=== PATIENT | male | born 1985 | race Caucasian/White ===

== ENCOUNTER 2017-02-18 01:09 | Inpatient (IN) | payer BC ==
[~2017-02-18 01:09] MED LIST: AMLO5TAB2 PO; BISACODYL 10 MG SUPP RECTAL PRN; CLIN1CAP6 PO; IBUP-232 PO; LACTULOSE SYRUP 20 GM/30 ML CUP PO PRN; LISI10TA3 PO; MAGNESIUM HYDROXIDE SUSP 30 ML CUP PO PRN; NALOXONE HCL 0.4 MG/ML AMP IV PRN; ONDANSETRON HCL 4 MG/2 ML VIAL IVP PRN; SENNOSIDES 8.6 MG TAB PO PRN; Vancomycin Consult Pharmacy 1 EA OTHER SCH
[2017-02-18 02:00] VITALS: BP 135/85; PULSE 88; RESP 22; TEMP 98.8; O2SAT 94
[2017-02-18] MEDS: PIPERACIL-TAZO 4.5 GM PREMIX 100 ML IV SCH ×3 (02:16→18:48)
--- NOTE | 2017-02-18 02:21 | HHI.HP ---
[facility] Service [facility] Primary Care Physician Non-Staff Admission Diagnosis Scrotal/perineal cellulitis Diagnoses: (1) Tobacco abuse (2) Leukocytosis (3) Cellulitis of scrotum (4) Cellulitis of perineum (5) Hypertension Chief Complaint: Pain/swelling in groin Travel History International Travel<30 Days: No Contact w/Intl Traveler <30 Da: No History of Present Illness The patient is a 31 year-old male who presented to the [place] [facility] with complaint of swelling and pain of the scrotum/groin. He states that his girlfriend convinced him to use Díaz chemical hair removal product on his genitalia on Monday. By Monday he noted "ingrown hairs", which progressed over the next 2 days to significant scrotal swelling and pain. He has no difficulty urinating. Has had subjective fever/chills. Review of Systems Constitutional: COMPLAINS OF: Fever, Chills, DENIES: Night Sweats Eyes: DENIES: Blurred vision, Vision loss Ears, nose, mouth, throat: DENIES: Hearing loss Respiratory: DENIES: Cough, Wheezing, Sputum production, Shortness of breath Cardiovascular: DENIES: Chest pain, Palpitations, Dyspnea on Exertion, Lower Extremity Edema Gastrointestinal: DENIES: Abdominal pain, Constipation, Diarrhea, Nausea, Vomiting Genitourinary: DENIES: Urinary frequency, Urinary incontinence, Urgency, Hematuria, Dysuria, Nocturia Musculoskeletal: DENIES: Joint pain, Muscle aches Integumentary: COMPLAINS OF: Rash, DENIES: Pruritus Hematologic/lymphatic: DENIES: Bruising Neurologic: DENIES: Headache Past Family Social History Past Medical History Asthma Hypertension Past Surgical History None Reported Medications Amlodipine (Amlodipine Besylate) 5 Mg Tab 5 Mg PO DAILY Lisinopril 10 Mg Tab 10 Mg PO DAILY Allergies: Coded Allergies: No Known Allergies (Unverified , 01/01/17) Family History Hypertension Social History Patient states that he drinks on the weekends. He smokes about a pack a day. Denies illicit drug use. Physical Exam Physical Exam GENERAL: Obese male in no acute distress. HEENT: Normocephalic, atraumatic. Pupils equal, round and reactive. Extraocular movements intact. No scleral icterus. No injection or drainage. Oropharynx is clear. Mucous membranes are moist. CARDIOVASCULAR: Regular rate and rhythm without murmurs, gallops, or rubs. RESPIRATORY: Clear to auscultation. No wheezes, rales, or rhonchi. Breathing is non-labored. GASTROINTESTINAL: Abdomen soft, non-tender, nondistended. EXTREMITIES: No lower extremity edema. No calf tenderness. PSYCH: Alert and oriented x 3. GENITOURINARY: There is swelling and erythema of the scrotum and perineum. Swelling/induration is worse on the right side of the scrotum. No fluctuance noted. No open wounds or drainage noted. Assessment and Plan Assessment and Plan 1. Cellulitis of the scrotum, perineum: CT shows inflammatory changes without evidence of subcutaneous emphysema or defined abscess. Continue IV antibiotics. Consult urology. 2. Hypertension: Continue home medications. 3. Leukocytosis: Secondary to cellulitis. Monitor labs. 4. DVT prophylaxis: MAGALIS Booth. Fco Wu MD Feb 18, 2017 02:21
[2017-02-18] MEDS ORDERED: ACETAMINOPHEN/HYDROcodone 325 MG/5 MG TAB PO PRN (02:30)
[2017-02-18] MEDS ORDERED: VANCOMYCIN INJ 1,600 MG in SODIUM CHLORID 0.9% 500 ML INJ 500 ML IV SCH (04:00)
[2017-02-18 05:38] LABS: AUTOMATED NEUTROPHIL # 16.3 TH/MM3 (1.8-7.7); BASOPHIL % 0.1 % (0.0-2.0); HEMATOCRIT 44.5 % (39.0-51.0); HEMO FLAGS DIFF FINAL; LYMPHOCYTE # 0.9 TH/MM3 (1.0-4.8); MEAN CELL VOLUME 83.6 FL (80.0-100.0); MEAN CORPUSCULAR HEMOGLOBIN 27.1 PG (27.0-34.0); MEAN CORPUSCULAR HGB CONC 32.5 % (32.0-36.0); MONO % 5.1 % (0.0-8.0); NEUT % 89.8 % (16.0-70.0); PLATELET COUNT 196 TH/MM3 (150-450); RED BLOOD COUNT 5.32 MIL/MM3 (4.50-5.90); RED CELL DISTRIBUTION WIDTH 14.1 % (11.6-17.2); WHITE BLOOD COUNT 18.2 TH/MM3 (4.0-11.0)
[2017-02-18 08:00] VITALS: BP 144/77; PULSE 86; RESP 24; TEMP 96.4; O2SAT 96
[2017-02-18] MEDS: amLODIPine BESYLATE 5 MG TAB PO SCH (09:00)
[2017-02-18] MEDS: LISINOPRIL 10 MG TAB PO SCH (09:00)
[2017-02-18] MEDS: ACETAMINOPHEN/HYDROcodone 325 MG/10 MG TAB PO PRN ×3 (09:01→18:47)
[2017-02-18] MEDS: SODIUM CHLORIDE 0.9% FLUSH 10 ML FLUSH IV FLUSH SCH ×2 (09:01→22:09)
--- NOTE | 2017-02-18 09:28 | HHI.PR ---
Subjective Remarks resting comfortably with no distress. still has some pressure on the scrotum. no fever. Objective Vitals Vital Signs Date Time Temp Pulse Resp B/P Pulse Ox O2 Delivery O2 Flow Rate FiO2 02/18/17 08:00 96.4 86 24 144/77 96 02/18/17 02:00 98.8 88 22 135/85 94 I/O 02/17/17 02/17/17 02/17/17 02/18/17 02/18/17 02/18/17 07:00 15:00 23:00 07:00 15:00 23:00 Intake Total 523 ml Output Total 850 ml Balance -327 ml Intake Oral 240 ml IV Total 283 ml Output Urine Total 850 ml Result Diagram: 02/18/17 0448 Objective Remarks GENERAL: This is a well-nourished, well-developed patient, in no apparent distress. CARDIOVASCULAR: Regular rate and regular rhythm without murmurs, gallops, or rubs. RESPIRATORY: Clear to auscultation. Breath sounds equal bilaterally. No wheezes , rales, or rhonchi. GASTROINTESTINAL: Abdomen soft, non-tender, nondistended. Normal, active bowel sounds Genitalia; right scrotum is swollen and tender MUSCULOSKELETAL: Extremities without clubbing, cyanosis, or edema. NEURO: Alert & Oriented x4 to person, place, time, situation. Moves all ext x4 Medications and IVs Current Medications Sodium Chloride (NS Flush) 2 ml UNSCH PRN IV FLUSH FLUSH AFTER USING IV ACCESS ; Start 02/17/17 at 21:30 Sodium Chloride (NS Flush) 2 ml BID IV FLUSH Last administered on 02/18/17t 09: 01; Start 02/18/17 at 09:00 Ondansetron HCl (Zofran Inj) 4 mg Q6H PRN IVP NAUSEA OR VOMITING; Start at 21:30 Naloxone HCl (Narcan Inj) 0.4 mg UNSCH PRN IV SEE LABEL COMMENTS; Start at 21:30 Magnesium Hydroxide (Milk Of Magnesia Liq) 30 ml Q12H PRN PO MILD - MODERATE CONSTIPATION; Start 02/17/17 at 21:30 Sennosides (Senokot) 17.2 mg Q12H PRN PO MODERATE - SEVERE CONSTIPATION; Start 02/17/17 at 21:30 Bisacodyl (Dulcolax Supp) 10 mg DAILY PRN RECTAL SEVERE CONSITIPATION; Start at 21:30 Lactulose 30 ml 30 ml DAILY PRN PO SEVERE CONSITIPATION; Start 02/17/17 at 21:30 Pharmacy Profile Note 0 ml @ 0 mls/hr UNSCH OTHER ; Start 02/17/17 at 21:30 Piperacillin Sod/ Tazobactam Sod 100 ml @ 200 mls/hr Q8H IV Last administered on 02/18/17 09:00; Start 02/18/17 at 02:00 Vancomycin HCl/ Sodium Chloride (Vancomycin Inj/ NS 500 ml Inj) 516 ml @ 250 mls/hr DAILY@04 IV Last administered on 02/18/17 03:37; Start 02/18/17 at 04:00 ; Stop 02/18/17 at 08:00; Status DC Amlodipine Besylate (Norvasc) 5 mg DAILY PO Last administered on 02/18/17 09:00 ; Start 02/18/17 at 09:00 Lisinopril (Prinivil) 10 mg DAILY PO Last administered on 02/18/17 09:00; Start 02/18/17 at 09:00 Acetaminophen/ Hydrocodone Bitart ([place] 5-325 Mg) 1 tab Q4H PRN PO PAIN SCALE 1 TO 6 Last administered on 02/18/17 02:40; Start 02/18/17 at 02:30 Acetaminophen/ Hydrocodone Bitart 1 tab 1 tab Q4H PRN PO PAIN SCALE 7 TO 10 Last administered on 02/18/17 09:01; Start 02/18/17 at 02:30 Vancomycin HCl/ Sodium Chloride (Vancomycin Inj/ NS 500 ml Inj) 520 ml @ 260 mls/hr Q12H IV ; Start 02/18/17 at 16:00 Miscellaneous Information SPECIFIC LAB TO BE ... ONCE ONCE .XX ; Start 02/20 at 03:45; Stop 02/20/17 at 03:46 A/P Assessment and Plan 1. Cellulitis of the scrotum, perineum: CT shows inflammatory changes without evidence of subcutaneous emphysema or defined abscess. Continue IV antibiotics. Consulted urology. 2. Hypertension: Continue home medications. 3. Leukocytosis: Secondary to cellulitis. Monitor labs; CBC in am. 4. DVT prophylaxis: SCDs, MAGALIS hose. Ish Underwood MD Feb 18, 2017 09:28
[2017-02-18 12:00] VITALS: BP 148/83; PULSE 92; RESP 18; TEMP 97.9; O2SAT 97
[2017-02-18 16:00] VITALS: BP 147/88; PULSE 103; RESP 22; TEMP 98.7; O2SAT 99
[2017-02-18] MEDS: VANCOMYCIN INJ 2,000 MG in SODIUM CHLORID 0.9% 500 ML INJ 500 ML IV SCH (16:54)
--- NOTE | 2017-02-18 19:30 | PD.CONS ---
HPI Service Urology Consult Requested By Primary Care Physician Non-Staff Diagnosis: (1) Tobacco abuse ICD Code: Z72.0 (2) Leukocytosis ICD Code: D72.829 (3) Cellulitis of scrotum ICD Code: N49.2 (4) Cellulitis of perineum ICD Code: L03.315 (5) Hypertension ICD Code: I10 History of Present Illness 31yo male admitted for scrotal cellulitis. Patient reports he placed Díaz to his genitals to remove the hair early this week. He has since developed pain and swelling to his scrotum that has spread to his right inner thigh. He states this is painful and has worsened since monday, however has improved since hospitalization and intiation of abx. Denies fevers. No hematuria. Several small lesions noted throughout right groin and scrotum, no drainage. He has never had a scrotal abscess. Review of Systems ROS Limitations: Clinical Condition Constitutional: DENIES: Fever Endocrine: DENIES: Heat/cold intolerance Eyes: DENIES: Blurred vision Ears, nose, mouth, throat: DENIES: Hearing loss Respiratory: DENIES: Apneas, Cough Cardiovascular: DENIES: Chest pain Gastrointestinal: DENIES: Abdominal pain Genitourinary: COMPLAINS OF: Testicular Pain, Testicular Swelling, DENIES: Urgency, Hematuria, Dysuria Musculoskeletal: DENIES: Joint pain Integumentary: COMPLAINS OF: Pruritus, Rash Hematologic/lymphatic: DENIES: Bruising Neurologic: DENIES: Headache Psychiatric: DENIES: Anxiety Except as stated in HPI: all other systems reviewed are Neg Past Family Social History Past Medical History Asthma Hypertension Past Surgical History none Reported Medications Reported Meds & Active Scripts Active Ibuprofen 600 Mg Tab 600 Mg PO Q8H PRN Clindamycin (Clindamycin HCl) 300 Mg Cap 300 Mg PO Q6H Reported Amlodipine (Amlodipine Besylate) 5 Mg Tab 5 Mg PO DAILY Lisinopril 10 Mg Tab 10 Mg PO DAILY Allergies: Coded Allergies: No Known Allergies (Unverified , 01/01/17) Active Ordered Medications Current Medications Medications (Trade) Dose Ordered Sig/Jerry Route Start Time Stop Time Status Last Admin (NS Flush) 2 ml UNSCH PRN IV FLUSH 02/17/17 21:30 (NS Flush) 2 ml BID IV FLUSH 02/18/17 09:00 02/18/17 09:01 (Zofran Inj) 4 mg Q6H PRN IVP 02/17/17 21:30 (Narcan Inj) 0.4 mg UNSCH PRN IV 02/17/17 21:30 (Milk Of Magnesia Liq) 30 ml Q12H PRN PO 02/17/17 21:30 (Senokot) 17.2 mg Q12H PRN PO 02/17/17 21:30 (Dulcolax Supp) 10 mg DAILY PRN RECTAL 02/17/17 21:30 Lactulose 30 ml 30 ml DAILY PRN PO 02/17/17 21:30 Pharmacy Profile Note 0 ml @ 0 mls/hr UNSCH OTHER 02/17/17 21:30 (Zosyn 4.5 Gm Premix) 100 ml @ 200 mls/hr Q8H IV 02/18/17 02:00 02/18/17 18:48 (Norvasc) 5 mg DAILY PO 02/18/17 09:00 02/18/17 09:00 (Prinivil) 10 mg DAILY PO 02/18/17 09:00 02/18/17 09:00 ([place] 5-325 Mg) 1 tab Q4H PRN PO 02/18/17 02:30 02/18/17 02:40 Acetaminophen/ Hydrocodone Bitart 1 tab 1 tab Q4H PRN PO 02/18/17 02:30 02/18/17 18:47 (Vancomycin Inj/ NS 500 ml Inj) 520 ml @ 260 mls/hr Q12H IV 02/18/17 16:00 02/18/17 16:54 Miscellaneous Information SPECIFIC LAB TO BE JARETT... ONCE ONCE .XX 02/20/17 03:45 02/20/17 03:46 Family History Hypertension Social History Drinks on the weekends. tobacco pack a day. Denies illicit drug use. Physical Exam Vital Signs Date Time Temp Pulse Resp B/P Pulse Ox O2 Delivery O2 Flow Rate FiO2 02/18/17 16:00 98.7 103 22 147/88 99 02/18/17 12:00 97.9 92 18 148/83 97 02/18/17 08:00 96.4 86 24 144/77 96 02/18/17 02:00 98.8 88 22 135/85 94 Physical Exam GENERAL: This is a well-nourished, well-developed patient, in no apparent distress. SKIN: No rashes, ecchymoses or lesions. Cool and dry. HEAD: Atraumatic. Normocephalic. EYES: . Extraocular motions intact. No scleral icterus. No injection or drainage. ENT: Nose without bleeding, purulent drainage. Airway patent. NECK: Trachea midline. CARDIOVASCULAR: Normal pulses, well perfused RESPIRATORY: nonlabored, equal chest rise GASTROINTESTINAL: Abdomen soft, non-tender, nondistended. GENITOURINARY: Circumcised phallus, normal meatus. Bilateral descended testis with erythema noted throughout scrotum, mildly tender to palpation, induration noted in the perineum and right groin with small pustules and ulcers of the right groin and scrotum, no drainage, no purulence, no abscess noted. MUSCULOSKELETAL: Extremities without clubbing, cyanosis, or edema. NEUROLOGICAL: Awake and alert. Motor and sensory grossly within normal limits. . Normal speech. Lab results reviewed: Yes Laboratory Tests Test 02/18/17 04:48 White Blood Count 18.2 Red Blood Count 5.32 Hemoglobin 14.4 Hematocrit 44.5 Mean Corpuscular Volume 83.6 Mean Corpuscular Hemoglobin 27.1 Mean Corpuscular Hemoglobin 32.5 Concent Red Cell Distribution Width 14.1 Platelet Count 196 Mean Platelet Volume 8.4 Neutrophils (%) (Auto) 89.8 Lymphocytes (%) (Auto) 5.0 Monocytes (%) (Auto) 5.1 Eosinophils (%) (Auto) 0.0 Basophils (%) (Auto) 0.1 Neutrophils # (Auto) 16.3 Lymphocytes # (Auto) 0.9 Monocytes # (Auto) 0.9 Eosinophils # (Auto) 0.0 Basophils # (Auto) 0.0 CBC Comment DIFF FINAL Differential Comment Result Diagram: 02/18/17 0448 Personally reviewed images: Yes Imaging CT did not identify obvious abscess. Assessment and Plan Problem List: (1) Cellulitis of groin ICD Code: L03.314 Status: Acute (2) Cellulitis of perineum ICD Code: L03.315 Status: Acute (3) Cellulitis of scrotum ICD Code: N49.2 Status: Acute Assessment and Plan Scrotal cellulitis, no abscess -Continue antibiotics -No drainable abscess noted -No surgical intervention indicated -Please call with questions Eduardo Bonilla MD 8, 2017 19:30
[2017-02-18 20:00] VITALS: BP 142/85; PULSE 102; RESP 24; TEMP 100; O2SAT 98
[2017-02-18] MEDS ORDERED: ACETAMINOPHEN 325 MG TAB PO ONE (21:30)
[2017-02-18] MEDS: HYDROmorphone HCL PF 1 MG/ML VIAL IV PUSH PRN (22:09)
[2017-02-19] VITALS: BP 131/64; PULSE 110; RESP 22; TEMP 99.8; O2SAT 96
[2017-02-19] MEDS: PIPERACIL-TAZO 4.5 GM PREMIX 100 ML IV SCH ×2 (03:14→10:03)
[2017-02-19] MEDS: ACETAMINOPHEN/HYDROcodone 325 MG/10 MG TAB PO PRN ×4 (03:22→17:21)
[2017-02-19] MEDS: VANCOMYCIN INJ 2,000 MG in SODIUM CHLORID 0.9% 500 ML INJ 500 ML IV SCH ×2 (03:57→16:25)
[2017-02-19 04:00] VITALS: BP 132/81; PULSE 94; RESP 24; TEMP 98; O2SAT 99
[2017-02-19 04:11] LABS: AUTOMATED NEUTROPHIL # 14.7 TH/MM3 (1.8-7.7); BASOPHIL # 0.1 TH/MM3 (0-0.2); BASOPHIL % 0.5 % (0.0-2.0); EOSINOPHIL # 0.1 TH/MM3 (0-0.4); EOSINOPHIL % 0.6 % (0.0-4.0); HEMATOCRIT 43.3 % (39.0-51.0); HEMO FLAGS DIFF FINAL; LYMPH % 13.8 % (9.0-44.0); LYMPHOCYTE # 2.7 TH/MM3 (1.0-4.8); MEAN CELL VOLUME 83.9 FL (80.0-100.0); MEAN CORPUSCULAR HEMOGLOBIN 26.9 PG (27.0-34.0); MEAN CORPUSCULAR HGB CONC 32.1 % (32.0-36.0); MONO % 9.1 % (0.0-8.0); PLATELET COUNT 229 TH/MM3 (150-450); RED BLOOD COUNT 5.16 MIL/MM3 (4.50-5.90); RED CELL DISTRIBUTION WIDTH 13.9 % (11.6-17.2); WHITE BLOOD COUNT 19.3 TH/MM3 (4.0-11.0)
[2017-02-19] MEDS: amLODIPine BESYLATE 5 MG TAB PO SCH (07:38)
[2017-02-19] MEDS: LISINOPRIL 10 MG TAB PO SCH (07:38)
[2017-02-19] MEDS: SODIUM CHLORIDE 0.9% FLUSH 10 ML FLUSH IV FLUSH SCH ×2 (07:39→20:08)
[2017-02-19] MEDS: HYDROmorphone HCL PF 1 MG/ML VIAL IV PUSH PRN ×5 (07:39→22:30)
[2017-02-19 08:00] VITALS: BP 139/81; PULSE 99; RESP 19; TEMP 95.5; O2SAT 96
--- NOTE | 2017-02-19 09:22 | HHI.PR ---
Subjective Remarks resting comfortably with no distress. Tmax 100. complaining of worsening pain and swelling of the scrotum. d/w the RN. Objective Vitals Vital Signs Date Time Temp Pulse Resp B/P Pulse Ox O2 Delivery O2 Flow Rate FiO2 02/19/17 08:00 95.5 99 19 139/81 96 02/19/17 04:00 98.0 94 24 132/81 99 02/19/17 00:00 99.8 110 22 131/64 96 02/18/17 20:00 100.0 102 24 142/85 98 02/18/17 16:00 98.7 103 22 147/88 99 02/18/17 12:00 97.9 92 18 148/83 97 I/O 02/18/17 02/18/17 02/18/17 02/19/17 02/19/17 02/19/17 07:00 15:00 23:00 07:00 15:00 23:00 Intake Total 523 ml 1480 ml 480 ml 320 ml Output Total 850 ml 900 ml 300 ml 350 ml Balance -327 ml 580 ml 180 ml -30 ml Intake Oral 240 ml 1480 ml 480 ml 320 ml IV Total 283 ml Output Urine Total 850 ml 900 ml 300 ml 350 ml # Bowel Movements 0 0 Result Diagram: 02/19/17 0323 Objective Remarks GENERAL: This is a well-nourished, well-developed patient, in no apparent distress. CARDIOVASCULAR: Regular rate and regular rhythm without murmurs, gallops, or rubs. RESPIRATORY: Clear to auscultation. Breath sounds equal bilaterally. No wheezes , rales, or rhonchi. GASTROINTESTINAL: Abdomen soft, non-tender, nondistended. Normal, active bowel sounds Genitalia; scrotum looks more swollen today. MUSCULOSKELETAL: Extremities without clubbing, cyanosis, or edema. NEURO: Alert & Oriented x4 to person, place, time, situation. Moves all ext x4 Procedures none Medications and IVs Current Medications Sodium Chloride (NS Flush) 2 ml UNSCH PRN IV FLUSH FLUSH AFTER USING IV ACCESS ; Start 02/17/17 at 21:30 Sodium Chloride (NS Flush) 2 ml BID IV FLUSH Last administered on 02/19/17t 07: 39; Start 02/18/17 at 09:00 Ondansetron HCl (Zofran Inj) 4 mg Q6H PRN IVP NAUSEA OR VOMITING; Start at 21:30 Naloxone HCl (Narcan Inj) 0.4 mg UNSCH PRN IV SEE LABEL COMMENTS; Start at 21:30 Magnesium Hydroxide (Milk Of Magnesia Liq) 30 ml Q12H PRN PO MILD - MODERATE CONSTIPATION; Start 02/17/17 at 21:30 Sennosides (Senokot) 17.2 mg Q12H PRN PO MODERATE - SEVERE CONSTIPATION; Start 02/17/17 at 21:30 Bisacodyl (Dulcolax Supp) 10 mg DAILY PRN RECTAL SEVERE CONSITIPATION; Start at 21:30 Lactulose 30 ml 30 ml DAILY PRN PO SEVERE CONSITIPATION; Start 02/17/17 at 21:30 Pharmacy Profile Note 0 ml @ 0 mls/hr UNSCH OTHER ; Start 02/17/17 at 21:30 Piperacillin Sod/ Tazobactam Sod 100 ml @ 200 mls/hr Q8H IV Last administered on 02/19/17 03:14; Start 02/18/17 at 02:00 Vancomycin HCl/ Sodium Chloride (Vancomycin Inj/ NS 500 ml Inj) 516 ml @ 250 mls/hr DAILY@04 IV Last administered on 02/18/17 03:37; Start 02/18/17 at 04:00 ; Stop 02/18/17 at 08:00; Status DC Amlodipine Besylate (Norvasc) 5 mg DAILY PO Last administered on 02/19/17 07:38 ; Start 02/18/17 at 09:00 Lisinopril (Prinivil) 10 mg DAILY PO Last administered on 02/19/17 07:38; Start 02/18/17 at 09:00 Acetaminophen/ Hydrocodone Bitart ([place] 5-325 Mg) 1 tab Q4H PRN PO PAIN SCALE 1 TO 6 Last administered on 02/18/17 02:40; Start 02/18/17 at 02:30 Acetaminophen/ Hydrocodone Bitart 1 tab 1 tab Q4H PRN PO PAIN SCALE 7 TO 10 Last administered on 02/19/17 06:48; Start 02/18/17 at 02:30 Vancomycin HCl/ Sodium Chloride (Vancomycin Inj/ NS 500 ml Inj) 520 ml @ 260 mls/hr Q12H IV Last administered on 02/19/17 03:57; Start 02/18/17 at 16:00 Miscellaneous Information SPECIFIC LAB TO BE JARETT... ONCE ONCE .XX ; Start 02/20 at 03:45; Stop 02/20/17 at 03:46 Acetaminophen (Tylenol) 650 mg ONCE ONCE PO Last administered on 02/18/17 22: 08; Start 02/18/17 at 21:30; Stop 02/18/17 at 21:31; Status DC Hydromorphone HCl (Dilaudid Pf Inj) 0.2 mg Q4H PRN IV PUSH breakthrough pain Last administered on 02/19/17 07:39; Start 02/18/17 at 21:30 A/P Assessment and Plan 1.sepsis due to Cellulitis of the scrotum, perineum: CT shows inflammatory changes without evidence of subcutaneous emphysema or defined abscess. Continue IV antibiotics. urology consult appreciated; no plan for surgical intervention at this time. will check scrotal sonogram and consult ID. 2. Hypertension: Continue home medications. 3. DVT prophylaxis: MAGALIS Booth. Ish Underwood MD Feb 19, 2017 09:22
[2017-02-19 12:00] VITALS: BP 150/68; PULSE 104; RESP 18; TEMP 99.6; O2SAT 96
[2017-02-19] MEDS ORDERED: diphenhydrAMINE HCL 25 MG CAP PO PRN (15:45)
[2017-02-19 16:00] VITALS: BP_SYST 132; BP_SYST 169; BP_DIAS 63; BP_DIAS 79; PULSE 100; PULSE 72; RESP 17; RESP 19; TEMP 98.7; TEMP 99.2; O2SAT 96
--- NOTE | 2017-02-19 16:40 | MB ---
cc: VINCENZO GUERRERO MD DATE OF CONSULTATION 02/19/[address] Underwood. REASON FOR CONSULTATION Scrotal cellulitis. HISTORY OF THE PRESENT ILLNESS This is a 31-year-old white male who presented with swelling and pain of the scrotum and the groin. The patient was evaluated at the [place] ER and subsequently sent to [place] for admission. The patient has been using a chemical compound hair removal product on his groin area approximately six days ago. Two days after he started using it he noted ingrown hairs and then he developed some scrotal pain and scrotal swelling. He notes that he also had fever. He was noted to have marked swelling of the scrotum on presentation. His white count was elevated at 17,000. A CT scan was performed and it showed abnormal right-sided hemiscrotum and inflammatory changes extended into the perineum without subcutaneous emphysema or defined abscess. The patient is on antibiotics. He seems to think that the swelling had improved a little and then worsened again. His white count is increasing. Today his white count is 19.3. He had a temperature of 100 degrees yesterday evening. He notes that the pain in the groin is still significant. He feels that it is worsening. He is concerned about the lack of improvement. PAST MEDICAL HISTORY 1. Hypertension. 2. Asthma. MEDICATIONS 1. Vancomycin. 2. Piperacillin / tazobactam. 3. Dwarf 10 as needed. 4. Norvasc. 5. Prinivil. 6. Dilaudid as needed. 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 Positive tobacco. The patient drinks alcohol one-half gallon of whisky a week. No illicit drugs. FAMILY HISTORY Noncontributory. REVIEW OF SYSTEMS Significant for fever and pain in the groin, otherwise negative. PHYSICAL EXAMINATION GENERAL: This is a moderately obese male who is in no acute distress. He is awake, alert, oriented. VITAL SIGNS: Temperature 99.6, blood pressure 150/68, respiratory rate 18, heart rate 104. HEENT: Extraocular movements grossly intact. Pupils are reactive to light. No icterus. Oropharynx no visible lesions. NECK: Supple. No adenopathy. LUNGS: Clear breath sounds. HEART: Regular rate and rhythm without any murmurs, rubs, or gallops. ABDOMEN: Obese. Soft. No tenderness appreciated. GENITOURINARY: The mons pubis has induration. There is a few punctate erythematous, excoriated areas at the thigh near the scrotum. The scrotum is markedly swollen, approximately the size of a large grapefruit measuring approximately 8 centimeters in diameter. It is extremely tender and erythematous with a confluent erythema. The patient also has some induration at the base of the scrotum at the perineum and it is extremely tender on palpation. There is a slightly glistening appearance to the tissue at the base of the scrotum. RECTAL: Not performed. EXTREMITIES: The lower extremities have no clubbing, cyanosis or edema. Upper extremities also have no clubbing, cyanosis or edema. SKIN: No rash. NEUROLOGICAL: Alert and oriented. Nonfocal. PSYCHIATRIC: The patient is calm and cooperative. LABORATORY DATA WBC 19.3, platelets 229, 76% neutrophils, hemoglobin is 13.9. IMPRESSION 1. Severe scrotal cellulitis. 2. Persistent leukocytosis and apparent slow improvement if any improvement is occurring at all. The patient seems to think that there is no improvement. CT scan showed inflammatory changes but no defined abscess. RECOMMENDATIONS 1. Continue vancomycin. 2. Add Clindamycin. 3. Discontinue piperacillin / tazobactam. 4. Add Levaquin. 5. Follow the clinical status and follow the white blood cell count and elevation of the scrotum as much as possible. If the patient has any temperature spike, blood culture should be obtained as well. Thank you for this consultation. His progress will be monitored and further recommendations will be given on followup if necessary. Vincenzo Guerrero MD FD/ARLYN /4:03 PM /4:15 PM LUISANA
--- NOTE | 2017-02-19 18:04 | HHI.PR ---
Subjective Patient symptoms today Scrotal swelling increased today. WBC elevated. Objective Vital Signs Vital Signs Date Time Temp Pulse Resp B/P Pulse Ox O2 Delivery O2 Flow Rate FiO2 02/19/17 16:00 99.2 100 19 169/79 96 02/19/17 12:00 99.6 104 18 150/68 96 02/19/17 08:00 95.5 99 19 139/81 96 02/19/17 04:00 98.0 94 24 132/81 99 02/19/17 00:00 99.8 110 22 131/64 96 02/18/17 20:00 100.0 102 24 142/85 98 Intake & Output 02/19/17 02/19/17 07:00 19:00 Intake Total 800 ml 1480 ml Output Total 650 ml 400 ml Balance 150 ml 1080 ml Intake Oral 800 ml 1480 ml Output Urine Total 650 ml 400 ml # Bowel Movements 0 0 Result Diagram: 02/19/17 0323 Objective Remarks Scrotum appears diffusely swollen, different than yesterday's exam. Scrotum today without any rugae and tight, with edema noted throughout with erythema, however no identifiable drainable abscess. Very tender to palpation today. Perineum and right pubic/groin indurated, relatively unchanged from yesterday exam Medications and IVs Current Medications Medications (Trade) Dose Ordered Sig/Jerry Route Start Time Stop Time Status Last Admin (NS Flush) 2 ml UNSCH PRN IV FLUSH 02/17/17 21:30 (NS Flush) 2 ml BID IV FLUSH 02/18/17 09:00 02/19/17 07:39 (Zofran Inj) 4 mg Q6H PRN IVP 02/17/17 21:30 (Narcan Inj) 0.4 mg UNSCH PRN IV 02/17/17 21:30 (Milk Of Magnesia Liq) 30 ml Q12H PRN PO 02/17/17 21:30 (Senokot) 17.2 mg Q12H PRN PO 02/17/17 21:30 (Dulcolax Supp) 10 mg DAILY PRN RECTAL 02/17/17 21:30 Lactulose 30 ml 30 ml DAILY PRN PO 02/17/17 21:30 (Vancomycin Consult Pharmacy) 0 ml @ 0 mls/hr UNSCH OTHER 02/17/17 21:30 (Norvasc) 5 mg DAILY PO 02/18/17 09:00 02/19/17 07:38 (Prinivil) 10 mg DAILY PO 02/18/17 09:00 02/19/17 07:38 ([place] 5-325 Mg) 1 tab Q4H PRN PO 02/18/17 02:30 02/18/17 02:40 Acetaminophen/ Hydrocodone Bitart 1 tab 1 tab Q4H PRN PO 02/18/17 02:30 02/19/17 17:21 (Vancomycin Inj/ NS 500 ml Inj) 520 ml @ 260 mls/hr Q12H IV 02/18/17 16:00 02/19/17 16:25 Miscellaneous Information SPECIFIC LAB TO BE JARETT... ONCE ONCE .XX 02/20/17 03:45 02/20/17 03:46 (Dilaudid Pf Inj) 0.5 mg Q4H PRN IV PUSH 02/19/17 09:30 02/19/17 14:34 Diphenhydramine HCl 25 mg 25 mg Q6H PRN PO 02/19/17 15:45 02/19/17 16:25 (Cleocin Inj/NS Inj) 106 ml @ 212 mls/hr Q8H IV 02/19/17 17:00 (Levaquin) 750 mg DAILY PO 02/19/17 17:00 Assessment and Plan Problem List: (1) Cellulitis of groin ICD Code: L03.314 Status: Acute (2) Cellulitis of perineum ICD Code: L03.315 Status: Acute (3) Cellulitis of scrotum ICD Code: N49.2 Status: Acute Assessment and Plan Scrotal cellulitis, no abscess -Continue antibiotics -No drainable abscess noted -Will obtain scrotal ultrasound to further assess -Maintain elevation to the scrotum to decrease edema -Please call with questions -Will follow Eduardo Bonilla MD Feb 19, 2017 18:04
[2017-02-19] MEDS: LEVOFLOXACIN 750 MG TAB PO SCH (18:42)
--- NOTE | 2017-02-19 19:01 | RADRPT ---
EXAM DATE/TIME: 02/19/2017 18:18 [place] COMPARISON: No previous studies available for comparison. INDICATIONS : Scrotal swelling and pain. MEDICAL HISTORY : Hypertension. Asthma. SURGICAL HISTORY : None. ENCOUNTER: Initial ACUITY: 3 days PAIN SCORE: 9/10 LOCATION: Bilateral scrotum. MEASUREMENTS: RIGHT TESTICLE: 3.9 x 2.9 x 3.0cm LEFT TESTICLE: 4.0 x 2.7 x 2.9cm FINDINGS: RIGHT TESTICLE: Homogeneous echotexture without intra or extratesticular mass. Blood flow is symmetric and within no rmal limits. No hydrocele or varicocele. Epididymis is within normal limits. LEFT TESTICLE: Homogeneous echotexture without intra or extratesticular mass. Blood flow is symmetric and within no rmal limits. No hydrocele or varicocele. Epididymis is within normal limits. SCROTUM: There is severe scrotal edema and enlargement with diffuse increased vascularity. There is no focal a bscess. CONCLUSION: 1. Severe scrotal edema and enlargement with diffuse increased vascularity. There is no distinct foca l abscess. 2. The testicles are intrinsically normal. Abhinav Akers MD on February 19, 2017 at 18:57 Board Certified Radiologist. This report was verified electronically.
[2017-02-19 20:00] VITALS: BP 143/88; PULSE 100; RESP 18; TEMP 100.2; O2SAT 97
[2017-02-19] MEDS: CLINDAMYCIN INJ 900 MG in SODIUM CHLORIDE 0.9% INJ 100 ML IV SCH (20:07)
[2017-02-19] MEDS: SODIUM CHLORIDE 0.9% FLUSH 10 ML FLUSH IV FLUSH PRN ×2 (22:30→23:59)
[2017-02-19] MEDS: ACETAMINOPHEN 325 MG TAB PO PRN (23:59)
[2017-02-20] VITALS: BP 132/75; PULSE 110; RESP 20; TEMP 101.7; O2SAT 94
[2017-02-20] MEDS ORDERED: PHARMACY ORDERED LAB ONE (03:45)
[2017-02-20] MEDS: VANCOMYCIN INJ 2,000 MG in SODIUM CHLORID 0.9% 500 ML INJ 500 ML IV SCH ×3 (03:49→21:10)
[2017-02-20 04:00] VITALS: BP 143/65; PULSE 90; RESP 20; TEMP 98.9; O2SAT 95
[2017-02-20 05:14] LABS: AUTOMATED NEUTROPHIL # 13.4 TH/MM3 (1.8-7.7); BASOPHIL % 0.2 % (0.0-2.0); EOSINOPHIL # 0.4 TH/MM3 (0-0.4); EOSINOPHIL % 2.3 % (0.0-4.0); HEMATOCRIT 41.5 % (39.0-51.0); LYMPH % 16.8 % (9.0-44.0); LYMPHOCYTE # 3.1 TH/MM3 (1.0-4.8); MEAN CELL VOLUME 82.7 FL (80.0-100.0); MEAN CORPUSCULAR HEMOGLOBIN 27.5 PG (27.0-34.0); MEAN CORPUSCULAR HGB CONC 33.2 % (32.0-36.0); MONO % 8.7 % (0.0-8.0); PLATELET COUNT 186 TH/MM3 (150-450); RED BLOOD COUNT 5.01 MIL/MM3 (4.50-5.90); RED CELL DISTRIBUTION WIDTH 13.7 % (11.6-17.2); WHITE BLOOD COUNT 18.5 TH/MM3 (4.0-11.0)
[2017-02-20 05:30] LABS: BICARBONATE 27.9 MEQ/L (21.0-32.0); POTASSIUM 3.9 MEQ/L (3.5-5.1)
[2017-02-20 06:14] LABS: HEMO FLAGS AUTO DIFF
[2017-02-20 06:18] LABS: BANDS 17 % (0-6); BASOPHILS 1 % (0-2); EOSINOPHILS 3 % (0-4); PLASMA CELLS 1 % (0-0); POLYS (SEG NEUTROPHILS) 53 % (16-70); WBC DIFF SAMPLE 100
[2017-02-20 06:19] LABS: PLATELET ESTIMATE SMEAR NORMAL (NORMAL); PLATELET MORPHOLOGY NORMAL (NORMAL); SCAN/DIFF FINAL DIFF MANUAL
[2017-02-20 08:00] VITALS: BP 152/90; PULSE 94; RESP 20; TEMP 98; O2SAT 94
[2017-02-20] MEDS: LISINOPRIL 10 MG TAB PO SCH (08:44)
[2017-02-20] MEDS: amLODIPine BESYLATE 5 MG TAB PO SCH (08:44)
[2017-02-20] MEDS: LEVOFLOXACIN 750 MG TAB PO SCH (08:44)
[2017-02-20] MEDS: CLINDAMYCIN INJ 900 MG in SODIUM CHLORIDE 0.9% INJ 100 ML IV SCH ×4 (08:45→17:26)
[2017-02-20] MEDS: SODIUM CHLORIDE 0.9% FLUSH 10 ML FLUSH IV FLUSH SCH ×2 (08:45→21:10)
[2017-02-20] MEDS: ACETAMINOPHEN/HYDROcodone 325 MG/10 MG TAB PO PRN ×3 (08:52→21:12)
[2017-02-20] MEDS: HYDROmorphone HCL PF 1 MG/ML VIAL IV PUSH PRN ×3 (10:41→23:23)
--- NOTE | 2017-02-20 11:43 | HHI.PR ---
Subjective Remarks f/u; scrotal infection in no acute distress. however is uncomfortable with the scrotal swelling and pain. noted that had a fever spike last night. d/w the RN. Objective Vitals Vital Signs Date Time Temp Pulse Resp B/P Pulse Ox O2 Delivery O2 Flow Rate FiO2 02/20/17 08:00 98.0 94 20 152/90 94 02/20/17 04:00 98.9 90 20 143/65 95 02/20/17 00:00 101.7 110 20 132/75 94 02/19/17 20:00 100.2 100 18 143/88 97 02/19/17 16:00 99.2 100 19 169/79 96 02/19/17 12:00 99.6 104 18 150/68 96 I/O 02/19/17 02/19/17 02/19/17 02/20/17 02/20/17 02/20/17 07:00 15:00 23:00 07:00 15:00 23:00 Intake Total 320 ml 1480 ml 480 ml 320 ml Output Total 350 ml 400 ml 300 ml 800 ml Balance -30 ml 1080 ml 180 ml -480 ml Intake Oral 320 ml 1480 ml 480 ml 320 ml Output Urine Total 350 ml 400 ml 300 ml 800 ml # Bowel Movements 0 0 0 0 Result Diagram: 02/20/17 0350 02/20/17 0350 Imaging Last Impressions Scrotum Ultrasound 02/19/17 0000 Signed Impressions: Service Date/Time: Sunday, February 19, 2017 18:18 - CONCLUSION: 1. Severe scrotal edema and enlargement with diffuse increased vascularity. There is no distinct focal abscess. 2. The testicles are intrinsically normal. Abhinav Akers MD Objective Remarks GENERAL: This is a well-nourished, well-developed patient, in no apparent distress. CARDIOVASCULAR: Regular rate and regular rhythm without murmurs, gallops, or rubs. RESPIRATORY: Clear to auscultation. Breath sounds equal bilaterally. No wheezes , rales, or rhonchi. GASTROINTESTINAL: Abdomen soft, non-tender, nondistended. Normal, active bowel sounds Genitalia; scrotum looks more swollen today. MUSCULOSKELETAL: Extremities without clubbing, cyanosis, or edema. NEURO: Alert & Oriented x4 to person, place, time, situation. Moves all ext x4 Procedures none Medications and IVs Current Medications Sodium Chloride (NS Flush) 2 ml UNSCH PRN IV FLUSH FLUSH AFTER USING IV ACCESS Last administered on 02/19/17 23:59; Start 02/17/17 at 21:30 Sodium Chloride (NS Flush) 2 ml BID IV FLUSH Last administered on 02/20/17 08: 45; Start 02/18/17 at 09:00 Ondansetron HCl (Zofran Inj) 4 mg Q6H PRN IVP NAUSEA OR VOMITING; Start at 21:30 Naloxone HCl (Narcan Inj) 0.4 mg UNSCH PRN IV SEE LABEL COMMENTS; Start at 21:30 Magnesium Hydroxide (Milk Of Magnesia Liq) 30 ml Q12H PRN PO MILD - MODERATE CONSTIPATION; Start 02/17/17 at 21:30 Sennosides (Senokot) 17.2 mg Q12H PRN PO MODERATE - SEVERE CONSTIPATION; Start 02/17/17 at 21:30 Bisacodyl (Dulcolax Supp) 10 mg DAILY PRN RECTAL SEVERE CONSITIPATION; Start at 21:30 Lactulose 30 ml 30 ml DAILY PRN PO SEVERE CONSITIPATION; Start 02/17/17 at 21:30 Pharmacy Profile Note 0 ml @ 0 mls/hr UNSCH OTHER ; Start 02/17/17 at 21:30 Piperacillin Sod/ Tazobactam Sod 100 ml @ 200 mls/hr Q8H IV Last administered on 02/19/17 10:03; Start 02/18/17 at 02:00; Stop 02/19/17 at 16:08; Status DC Vancomycin HCl/ Sodium Chloride (Vancomycin Inj/ NS 500 ml Inj) 516 ml @ 250 mls/hr DAILY@04 IV Last administered on 02/18/17 03:37; Start 02/18/17 at 04:00 ; Stop 02/18/17 at 08:00; Status DC Amlodipine Besylate (Norvasc) 5 mg DAILY PO Last administered on 02/20/17 08: 44; Start 02/18/17 at 09:00 Lisinopril (Prinivil) 10 mg DAILY PO Last administered on 02/20/17 08:44; Start 02/18/17 at 09:00 Acetaminophen/ Hydrocodone Bitart ([place] 5-325 Mg) 1 tab Q4H PRN PO PAIN SCALE 1 TO 6 Last administered on 02/18/17 02:40; Start 02/18/17 at 02:30 Acetaminophen/ Hydrocodone Bitart 1 tab 1 tab Q4H PRN PO PAIN SCALE 7 TO 10 Last administered on 02/20/17 08:52; Start 02/18/17 at 02:30 Vancomycin HCl/ Sodium Chloride (Vancomycin Inj/ NS 500 ml Inj) 520 ml @ 260 mls/hr Q12H IV Last administered on 02/20/17 03:49; Start 02/18/17 at 16:00; Stop 02/20/17 at 11:33; Status DC Miscellaneous Information SPECIFIC LAB TO BE JARETT... ONCE ONCE .XX Last administered on 02/20/17 03:45; Start 02/20/17 at 03:45; Stop 02/20/17 at 03:46 ; Status DC Acetaminophen (Tylenol) 650 mg ONCE ONCE PO Last administered on 02/18/17 22: 08; Start 02/18/17 at 21:30; Stop 02/18/17 at 21:31; Status DC Hydromorphone HCl (Dilaudid Pf Inj) 0.2 mg Q4H PRN IV PUSH breakthrough pain Last administered on 02/19/17 07:39; Start 02/18/17 at 21:30; Stop 02/19/17 at 09: 21; Status DC Hydromorphone HCl (Dilaudid Pf Inj) 0.5 mg Q4H PRN IV PUSH breakthrough pain Last administered on 02/20/17 10:41; Start 02/19/17 at 09:30 Diphenhydramine HCl 25 mg 25 mg Q6H PRN PO ITCHING Last administered on 16:25; Start 02/19/17 at 15:45 Clindamycin Phosphate/Sodium Chloride (Cleocin Inj/NS Inj) 106 ml @ 212 mls/hr Q8H IV Last administered on 02/20/17 08:45; Start 02/19/17 at 17:00 Levofloxacin (Levaquin) 750 mg DAILY PO Last administered on 02/20/17 08:44; Start 02/19/17 at 17:00 Acetaminophen 650 mg 650 mg Q4H PRN PO fever Last administered on 02/19/17t 23: 59; Start 02/20/17 at 00:00 Vancomycin HCl/ Sodium Chloride (Vancomycin Inj/ NS 500 ml Inj) 520 ml @ 257.5 mls/ hr Q8H IV ; Start 02/20/17 at 13:00 Miscellaneous Information SPECIFIC LAB TO BE ... ONCE ONCE .XX ; Start 02/21 at 04:45; Stop 02/21/17 at 04:46 A/P Assessment and Plan 1.sepsis due to Cellulitis of the scrotum, perineum: scrotal swelling is somewhat worse today. CT shows inflammatory changes without evidence of subcutaneous emphysema or defined abscess. ] scrotal sonogram with Severe scrotal edema and enlargement with diffuse increased vascularity. There is no distinct focal abscess. The testicles are intrinsically normal. Continue antibiotics. will follow the blood cultures. ID and urology following. 2. Hypertension: Continue home medications. 3. DVT prophylaxis: MAGALIS Booth. Ish Underwood MD Feb 20, 2017 11:43
[2017-02-20 12:00] VITALS: BP 156/102; PULSE 93; RESP 20; TEMP 98.8; O2SAT 96
--- NOTE | 2017-02-20 14:52 | HHI.IDPN ---
Note Infectious Disease Note Patient feels a little better. His fiancee stated that she squeezed some yellow to milky fluid from the area between the scrotum and the anus. Patient said it felt better after that. Afebrile. PAST MEDICAL HISTORY 1. Hypertension. 2. Asthma. MEDICATIONS 1. Vancomycin. 2. Levaquin. 3. Clindamycin. 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 Positive tobacco. The patient drinks alcohol one-half gallon of whisky a week. No illicit drugs. Vital Signs Date Time Temp Pulse Resp B/P Pulse Ox O2 Delivery O2 Flow Rate FiO2 02/20/17 12:00 98.8 93 20 156/102 96 02/20/17 08:00 98.0 94 20 152/90 94 02/20/17 04:00 98.9 90 20 143/65 95 02/20/17 00:00 101.7 110 20 132/75 94 02/19/17 20:00 100.2 100 18 143/88 97 02/19/17 16:00 99.2 100 19 169/79 96 Laboratory Tests Test 02/19/17 02/20/17 03:23 03:50 White Blood Count 19.3 TH/MM3 18.5 TH/MM3 Red Blood Count 5.16 MIL/MM3 5.01 MIL/MM3 Hemoglobin 13.9 GM/DL 13.8 GM/DL Hematocrit 43.3 % 41.5 % Mean Corpuscular Volume 83.9 FL 82.7 FL Mean Corpuscular Hemoglobin 26.9 PG 27.5 PG Mean Corpuscular Hemoglobin 32.1 % 33.2 % Concent Red Cell Distribution Width 13.9 % 13.7 % Platelet Count 229 TH/MM3 186 TH/MM3 Mean Platelet Volume 8.6 FL 9.3 FL Neutrophils (%) (Auto) 76.0 % 72.0 % Lymphocytes (%) (Auto) 13.8 % 16.8 % Monocytes (%) (Auto) 9.1 % 8.7 % Eosinophils (%) (Auto) 0.6 % 2.3 % Basophils (%) (Auto) 0.5 % 0.2 % Neutrophils # (Auto) 14.7 TH/MM3 13.4 TH/MM3 Lymphocytes # (Auto) 2.7 TH/MM3 3.1 TH/MM3 Monocytes # (Auto) 1.8 TH/MM3 1.6 TH/MM3 Eosinophils # (Auto) 0.1 TH/MM3 0.4 TH/MM3 Basophils # (Auto) 0.1 TH/MM3 0.0 TH/MM3 CBC Comment DIFF FINAL AUTO DIFF Differential Comment FINAL DIFF MANUAL Differential Total Cells 100 Counted Neutrophils % (Manual) 53 % Band Neutrophils % 17 % Lymphocytes % 19 % Monocytes % 6 % Eosinophils % 3 % Basophils % 1 % Neutrophils # (Manual) 13.0 TH/MM3 Atypical Lymphocytes % Plasma Cells 1 % Platelet Estimate NORMAL Platelet Morphology Comment NORMAL Red Cell Morphology Comment NORMAL Laboratory Tests Test 02/20/17 03:50 Sodium Level 137 MEQ/L Potassium Level 3.9 MEQ/L Chloride Level 101 MEQ/L Carbon Dioxide Level 27.9 MEQ/L Anion Gap 8 MEQ/L Blood Urea Nitrogen 9 MG/DL Creatinine 0.64 MG/DL Estimat Glomerular Filtration 145 ML/MIN Rate Random Glucose 146 MG/DL Calcium Level 8.0 MG/DL Microbiology Date/Time Procedure Status Source Growth 02/20/17 01:10 Aerobic Blood Culture Received Blood Peripheral Pending 02/20/17 01:10 Anaerobic Blood Culture Received Blood Peripheral Pending 02/20/17 01:15 Aerobic Blood Culture Received Blood Peripheral Pending 02/20/17 01:15 Anaerobic Blood Culture Received Blood Peripheral Pending IMAGING: Scrotum Ultrasound 02/19/17 0000 Signed Impressions: Service Date/Time: Sunday, February 19, 2017 18:18 - CONCLUSION: 1. Severe scrotal edema and enlargement with diffuse increased vascularity. There is no distinct focal abscess. 2. The testicles are intrinsically normal. Abhinav Akers MD PHYSICAL EXAMINATION GENERAL: This is a moderately obese male who is in no acute distress. He is awake, alert, oriented. HEENT: Pupils are reactive to light. No icterus. Oropharynx no visible lesions. NECK: Supple. No adenopathy. LUNGS: Clear breath sounds. HEART: Regular rate and rhythm without any murmurs, rubs, or gallops. ABDOMEN: Obese. Soft. No tenderness appreciated. GENITOURINARY: The mons pubis has induration. There is a few punctate erythematous, excoriated areas at the right thigh near the scrotum. The scrotum is markedly swollen, approximately the size of a large grapefruit measuring approximately 8 centimeters in diameter. It is still extremely tender and erythematous with a confluent erythema. The patient also has some induration at the base of the scrotum at the perineum and it is extremely tender on palpation. EXTREMITIES: The lower extremities have no clubbing, cyanosis or edema. Upper extremities also have no clubbing, cyanosis or edema. SKIN: No rash. NEUROLOGICAL: Alert and oriented. Nonfocal. PSYCHIATRIC: The patient is calm and cooperative. IMPRESSION 1. Severe scrotal cellulitis. 2. Persistent leukocytosis. RECOMMENDATIONS 1. Continue vancomycin. 2. Continue Clindamycin. 3. Continue Levaquin. 4. Culture wound . 5. Follow the clinical status and follow the white blood cell count and elevation of the scrotum as much as possible. Neville Fernandez MD Feb 20, 2017 14:52
[2017-02-20 16:00] VITALS: BP 129/77; PULSE 92; RESP 20; TEMP 98.7; O2SAT 96
[2017-02-20 20:00] VITALS: BP 137/89; PULSE 99; RESP 22; TEMP 101.1; O2SAT 95
[2017-02-20] MEDS: ACETAMINOPHEN 325 MG TAB PO PRN (21:35)
[2017-02-21] VITALS: BP 162/1; PULSE 98; RESP 23; TEMP 99.9; O2SAT 97
[2017-02-21] MEDS: CLINDAMYCIN INJ 900 MG in SODIUM CHLORIDE 0.9% INJ 100 ML IV SCH ×3 (01:09→18:27)
[2017-02-21] MEDS: VANCOMYCIN INJ 2,000 MG in SODIUM CHLORID 0.9% 500 ML INJ 500 ML IV SCH ×3 (04:09→21:40)
[2017-02-21] MEDS ORDERED: PHARMACY ORDERED LAB ONE (04:45)
[2017-02-21 08:00] VITALS: BP 142/86; PULSE 97; RESP 19; TEMP 99.3; O2SAT 94
[2017-02-21] MEDS: LISINOPRIL 10 MG TAB PO SCH (08:28)
[2017-02-21] MEDS: ACETAMINOPHEN/HYDROcodone 325 MG/10 MG TAB PO PRN ×4 (08:28→21:40)
[2017-02-21] MEDS: amLODIPine BESYLATE 5 MG TAB PO SCH (08:28)
[2017-02-21] MEDS: LEVOFLOXACIN 750 MG TAB PO SCH (08:28)
[2017-02-21] MEDS: SODIUM CHLORIDE 0.9% FLUSH 10 ML FLUSH IV FLUSH SCH ×2 (08:29→21:40)
--- NOTE | 2017-02-21 10:14 | HHI.PR ---
Subjective Remarks in no acute distress. scrotal pain seems to be better today. Tmax 101.1. Objective Vitals Vital Signs Date Time Temp Pulse Resp B/P Pulse Ox O2 Delivery O2 Flow Rate FiO2 02/21/17 08:00 99.3 97 19 142/86 94 02/21/17 00:00 99.9 98 23 162/1 97 02/20/17 20:00 101.1 99 22 137/89 95 02/20/17 16:00 98.7 92 20 129/77 96 02/20/17 12:00 98.8 93 20 156/102 96 I/O 02/20/17 02/20/17 02/20/17 02/21/17 02/21/17 02/21/17 07:00 15:00 23:00 07:00 15:00 23:00 Intake Total 320 ml 1170 ml 895 ml 1095 ml Output Total 800 ml 900 ml 1325 ml 1175 ml Balance -480 ml 270 ml -430 ml -80 ml Intake Oral 320 ml 720 ml 240 ml 240 ml IV Total 450 ml 655 ml 855 ml Output Urine Total 800 ml 900 ml 1325 ml 1175 ml # Bowel Movements 0 1 Result Diagram: 02/20/17 0350 02/20/17 0350 Imaging Last Impressions Scrotum Ultrasound 02/19/17 0000 Signed Impressions: Service Date/Time: Sunday, February 19, 2017 18:18 - CONCLUSION: 1. Severe scrotal edema and enlargement with diffuse increased vascularity. There is no distinct focal abscess. 2. The testicles are intrinsically normal. Abhinav Akers MD Objective Remarks GENERAL: This is a well-nourished, well-developed patient, in no apparent distress. CARDIOVASCULAR: Regular rate and regular rhythm without murmurs, gallops, or rubs. RESPIRATORY: Clear to auscultation. Breath sounds equal bilaterally. No wheezes , rales, or rhonchi. GASTROINTESTINAL: Abdomen soft, non-tender, nondistended. Normal, active bowel sounds Genitalia; scrotum swelling looks slightly better today. MUSCULOSKELETAL: Extremities without clubbing, cyanosis, or edema. NEURO: Alert & Oriented x4 to person, place, time, situation. Moves all ext x4 Procedures none Medications and IVs Current Medications Sodium Chloride (NS Flush) 2 ml UNSCH PRN IV FLUSH FLUSH AFTER USING IV ACCESS Last administered on 02/19/17 23:59; Start 02/17/17 at 21:30 Sodium Chloride (NS Flush) 2 ml BID IV FLUSH Last administered on 02/21/17 08: 29; Start 02/18/17 at 09:00 Ondansetron HCl (Zofran Inj) 4 mg Q6H PRN IVP NAUSEA OR VOMITING; Start at 21:30 Naloxone HCl (Narcan Inj) 0.4 mg UNSCH PRN IV SEE LABEL COMMENTS; Start at 21:30 Magnesium Hydroxide (Milk Of Magnesia Liq) 30 ml Q12H PRN PO MILD - MODERATE CONSTIPATION; Start 02/17/17 at 21:30 Sennosides (Senokot) 17.2 mg Q12H PRN PO MODERATE - SEVERE CONSTIPATION; Start 02/17/17 at 21:30 Bisacodyl (Dulcolax Supp) 10 mg DAILY PRN RECTAL SEVERE CONSITIPATION; Start at 21:30 Lactulose 30 ml 30 ml DAILY PRN PO SEVERE CONSITIPATION; Start 02/17/17 at 21:30 Pharmacy Profile Note 0 ml @ 0 mls/hr UNSCH OTHER ; Start 02/17/17 at 21:30 Piperacillin Sod/ Tazobactam Sod 100 ml @ 200 mls/hr Q8H IV Last administered on 02/19/17 10:03; Start 02/18/17 at 02:00; Stop 02/19/17 at 16:08; Status DC Vancomycin HCl/ Sodium Chloride (Vancomycin Inj/ NS 500 ml Inj) 516 ml @ 250 mls/hr DAILY@04 IV Last administered on 02/18/17 03:37; Start 02/18/17 at 04:00 ; Stop 02/18/17 at 08:00; Status DC Amlodipine Besylate (Norvasc) 5 mg DAILY PO Last administered on 02/21/17 08: 28; Start 02/18/17 at 09:00 Lisinopril (Prinivil) 10 mg DAILY PO Last administered on 02/21/17 08:28; Start 02/18/17 at 09:00 Acetaminophen/ Hydrocodone Bitart ([place] 5-325 Mg) 1 tab Q4H PRN PO PAIN SCALE 1 TO 6 Last administered on 02/18/17 02:40; Start 02/18/17 at 02:30 Acetaminophen/ Hydrocodone Bitart 1 tab 1 tab Q4H PRN PO PAIN SCALE 7 TO 10 Last administered on 02/21/17 08:28; Start 02/18/17 at 02:30 Vancomycin HCl/ Sodium Chloride (Vancomycin Inj/ NS 500 ml Inj) 520 ml @ 260 mls/hr Q12H IV Last administered on 02/20/17 03:49; Start 02/18/17 at 16:00; Stop 02/20/17 at 11:33; Status DC Miscellaneous Information SPECIFIC LAB TO BE JARETT... ONCE ONCE .XX Last administered on 02/20/17 03:45; Start 02/20/17 at 03:45; Stop 02/20/17 at 03:46 ; Status DC Acetaminophen (Tylenol) 650 mg ONCE ONCE PO Last administered on 02/18/17 22: 08; Start 02/18/17 at 21:30; Stop 02/18/17 at 21:31; Status DC Hydromorphone HCl (Dilaudid Pf Inj) 0.2 mg Q4H PRN IV PUSH breakthrough pain Last administered on 02/19/17 07:39; Start 02/18/17 at 21:30; Stop 02/19/17 at 09: 21; Status DC Hydromorphone HCl (Dilaudid Pf Inj) 0.5 mg Q4H PRN IV PUSH breakthrough pain Last administered on 02/20/17 23:23; Start 02/19/17 at 09:30 Diphenhydramine HCl 25 mg 25 mg Q6H PRN PO ITCHING Last administered on 16:25; Start 02/19/17 at 15:45 Clindamycin Phosphate/Sodium Chloride (Cleocin Inj/NS Inj) 106 ml @ 212 mls/hr Q8H IV Last administered on 02/21/17 08:28; Start 02/19/17 at 17:00 Levofloxacin (Levaquin) 750 mg DAILY PO Last administered on 02/21/17 08:28; Start 02/19/17 at 17:00 Acetaminophen 650 mg 650 mg Q4H PRN PO fever Last administered on 02/20/17 21: 35; Start 02/20/17 at 00:00 Vancomycin HCl/ Sodium Chloride (Vancomycin Inj/ NS 500 ml Inj) 520 ml @ 257.5 mls/ hr Q8H IV Last administered on 02/21/17 04:09; Start 02/20/17 at 13:00 Miscellaneous Information SPECIFIC LAB TO BE JARETT... ONCE ONCE .XX Last administered on 02/21/17 04:02; Start 02/21/17 at 04:45; Stop 02/21/17 at 04:46 ; Status DC Miscellaneous Information SPECIFIC LAB TO BE DRAWN:VANCOMYCIN TROUGH DATE TO... ONCE ONCE .XX ; Start 02/23/17 at 04:45; Stop 02/23/17 at 04:46 A/P Assessment and Plan 1.sepsis due to Cellulitis of the scrotum, perineum: scrotal swelling is somewhat better today. CT shows inflammatory changes without evidence of subcutaneous emphysema or defined abscess. ] scrotal sonogram with Severe scrotal edema and enlargement with diffuse increased vascularity. There is no distinct focal abscess. The testicles are intrinsically normal. Continue antibiotics. will follow the blood cultures. ID and urology following. 2. Hypertension: Continue home medications. 3. DVT prophylaxis: MAGALIS Booth. Ish Underwood MD Feb 21, 2017 10:14
[2017-02-21] MEDS: HYDROmorphone HCL PF 1 MG/ML VIAL IV PUSH PRN ×2 (10:20→23:50)
[2017-02-21 12:00] VITALS: BP 141/95; PULSE 96; RESP 18; TEMP 97.4; O2SAT 95
--- NOTE | 2017-02-21 15:13 | HHI.IDPN ---
Note Infectious Disease Note Patient feels a little better. Notes the pain is a little better. Has drainage at the area between the scrotum and the anus which is indurated. Temp spike last night. Wound culture has MRSA. PAST MEDICAL HISTORY 1. Hypertension. 2. Asthma. MEDICATIONS 1. Vancomycin. 2. Levaquin. 3. Clindamycin. 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 Positive tobacco. The patient drinks alcohol one-half gallon of whisky a week. No illicit drugs. OBJECTIVE: Vital Signs Date Time Temp Pulse Resp B/P Pulse Ox O2 Delivery O2 Flow Rate FiO2 02/21/17 12:00 97.4 96 18 141/95 95 02/21/17 08:00 99.3 97 19 142/86 94 02/21/17 00:00 99.9 98 23 162/1 97 02/20/17 20:00 101.1 99 22 137/89 95 02/20/17 16:00 98.7 92 20 129/77 96 02/20/17 02/20/17 02/21/17 15:00 23:00 07:00 Intake Total 1170 ml 895 ml 1095 ml Output Total 900 ml 1325 ml 1175 ml Balance 270 ml -430 ml -80 ml Intake Oral 720 ml 240 ml 240 ml IV Total 450 ml 655 ml 855 ml Output Urine Total 900 ml 1325 ml 1175 ml # Bowel Movements 1 Laboratory Tests Test 02/20/17 03:50 White Blood Count 18.5 TH/MM3 Red Blood Count 5.01 MIL/MM3 Hemoglobin 13.8 GM/DL Hematocrit 41.5 % Mean Corpuscular Volume 82.7 FL Mean Corpuscular Hemoglobin 27.5 PG Mean Corpuscular Hemoglobin 33.2 % Concent Red Cell Distribution Width 13.7 % Platelet Count 186 TH/MM3 Mean Platelet Volume 9.3 FL Neutrophils (%) (Auto) 72.0 % Lymphocytes (%) (Auto) 16.8 % Monocytes (%) (Auto) 8.7 % Eosinophils (%) (Auto) 2.3 % Basophils (%) (Auto) 0.2 % Neutrophils # (Auto) 13.4 TH/MM3 Lymphocytes # (Auto) 3.1 TH/MM3 Monocytes # (Auto) 1.6 TH/MM3 Eosinophils # (Auto) 0.4 TH/MM3 Basophils # (Auto) 0.0 TH/MM3 CBC Comment AUTO DIFF Differential Total Cells 100 Counted Neutrophils % (Manual) 53 % Band Neutrophils % 17 % Lymphocytes % 19 % Monocytes % 6 % Eosinophils % 3 % Basophils % 1 % Neutrophils # (Manual) 13.0 TH/MM3 Differential Comment FINAL DIFF MANUAL Atypical Lymphocytes % Plasma Cells 1 % Platelet Estimate NORMAL Platelet Morphology Comment NORMAL Red Cell Morphology Comment NORMAL Laboratory Tests Test 02/20/17 03:50 Sodium Level 137 MEQ/L Potassium Level 3.9 MEQ/L Chloride Level 101 MEQ/L Carbon Dioxide Level 27.9 MEQ/L Anion Gap 8 MEQ/L Blood Urea Nitrogen 9 MG/DL Creatinine 0.64 MG/DL Estimat Glomerular Filtration 145 ML/MIN Rate Random Glucose 146 MG/DL Calcium Level 8.0 MG/DL Microbiology Date/Time Procedure Status Source Growth 02/20/17 01:10 Aerobic Blood Culture - Preliminary Resulted Blood Peripheral NO GROWTH IN 1 DAY 02/20/17 01:10 Anaerobic Blood Culture - Preliminary Resulted Blood Peripheral NO GROWTH IN 1 DAY 02/20/17 01:15 Aerobic Blood Culture - Preliminary Resulted Blood Peripheral NO GROWTH IN 1 DAY 02/20/17 01:15 Anaerobic Blood Culture - Preliminary Resulted Blood Peripheral NO GROWTH IN 1 DAY 02/20/17 15:30 Gram Stain - Final Resulted Wound Scrotum 02/20/17 15:30 Wound Culture - Preliminary Resulted S. Aureus Mrsa IMAGING: Scrotum Ultrasound 02/19/17 0000 Signed Impressions: Service Date/Time: Sunday, February 19, 2017 18:18 - CONCLUSION: 1. Severe scrotal edema and enlargement with diffuse increased vascularity. There is no distinct focal abscess. 2. The testicles are intrinsically normal. Abhinav Akers MD PHYSICAL EXAMINATION GENERAL: No acute distress. He is awake, alert, oriented. HEENT: No icterus. Oropharynx no visible lesions. NECK: Supple. No adenopathy. LUNGS: Clear breath sounds. HEART: Regular rate and rhythm without any murmurs, rubs, or gallops. ABDOMEN: Obese. Soft. No tenderness. GENITOURINARY: The mons pubis has induration. There is a few punctate erythematous, excoriated areas at the right thigh near the scrotum. The scrotum remains markedly swollen, approximately the size of a large grapefruit measuring approximately 8 centimeters in diameter. It is still extremely tender and erythematous with a confluent erythema. Induration at the base of the scrotum at the perineum and it is extremely tender on palpation. EXTREMITIES: No clubbing, cyanosis or edema. SKIN: No rash. NEUROLOGICAL: Alert and oriented. Nonfocal. PSYCHIATRIC: The patient is calm and cooperative. IMPRESSION 1. Severe scrotal cellulitis. MRSA. 2. Persistent leukocytosis. RECOMMENDATIONS 1. Continue vancomycin. 2. Continue Clindamycin. 3. Stop Levaquin. 4. Follow sensitivity of the MRSA. 5. Follow the clinical status and follow the white blood cell count and continue to elevate of the scrotum as much as possible. Neville Fernandez MD Feb 21, 2017 15:13
[2017-02-21 16:00] VITALS: BP 138/80; PULSE 97; RESP 17; TEMP 98.5; O2SAT 96
[2017-02-21 20:00] VITALS: BP 162/88; PULSE 95; RESP 20; TEMP 99.8; O2SAT 97
[2017-02-22] VITALS: BP 125/63; PULSE 94; RESP 20; TEMP 99.7; O2SAT 99
[2017-02-22] MEDS: CLINDAMYCIN INJ 900 MG in SODIUM CHLORIDE 0.9% INJ 100 ML IV SCH ×3 (00:30→15:54)
[2017-02-22] MEDS: ACETAMINOPHEN/HYDROcodone 325 MG/10 MG TAB PO PRN ×4 (03:24→16:04)
[2017-02-22] MEDS: VANCOMYCIN INJ 2,000 MG in SODIUM CHLORID 0.9% 500 ML INJ 500 ML IV SCH ×3 (04:07→20:28)
[2017-02-22 05:43] LABS: AUTOMATED NEUTROPHIL # 10.8 TH/MM3 (1.8-7.7); BASOPHIL # 0.1 TH/MM3 (0-0.2); BASOPHIL % 0.6 % (0.0-2.0); EOSINOPHIL # 0.8 TH/MM3 (0-0.4); EOSINOPHIL % 5.3 % (0.0-4.0); HEMATOCRIT 43.4 % (39.0-51.0); LYMPH % 16.2 % (9.0-44.0); LYMPHOCYTE # 2.5 TH/MM3 (1.0-4.8); MEAN CELL VOLUME 83.5 FL (80.0-100.0); MEAN CORPUSCULAR HGB CONC 32.4 % (32.0-36.0); MONO % 8.5 % (0.0-8.0); NEUT % 69.4 % (16.0-70.0); PLATELET COUNT 312 TH/MM3 (150-450); RED CELL DISTRIBUTION WIDTH 14.1 % (11.6-17.2); WHITE BLOOD COUNT 15.6 TH/MM3 (4.0-11.0)
[2017-02-22 05:55] LABS: HEMO FLAGS AUTO DIFF
[2017-02-22 08:00] VITALS: BP 157/95; PULSE 80; RESP 19; TEMP 96.4; O2SAT 97
[2017-02-22 08:24] LABS: BANDS 12 % (0-6); EOSINOPHILS 3 % (0-4); METAMYELOCYTES 2 % (0-1); MYELOCYTES 1 % (0-0); NEUTROPHIL # MANUAL DIFF 10.1 TH/MM3 (1.8-7.7); POLYS (SEG NEUTROPHILS) 50 % (16-70); WBC DIFF SAMPLE 100
[2017-02-22 08:25] LABS: HELMET CELLS 1+ (NORMAL); KERATOCYTES 1+ (NORMAL); PLATELET ESTIMATE SMEAR NORMAL (NORMAL); PLATELET MORPHOLOGY NORMAL (NORMAL); SCAN/DIFF FINAL DIFF MANUAL
[2017-02-22 08:27] LABS: TOXIC VACUOLATION PRESENT (NONE SEEN)
[2017-02-22] MEDS: amLODIPine BESYLATE 5 MG TAB PO SCH (08:46)
[2017-02-22] MEDS: LISINOPRIL 10 MG TAB PO SCH (08:46)
[2017-02-22] MEDS: SODIUM CHLORIDE 0.9% FLUSH 10 ML FLUSH IV FLUSH SCH ×2 (08:49→21:00)
--- NOTE | 2017-02-22 09:41 | HHI.PR ---
Subjective Remarks in no distress. Tmax 99.8. overall feels better. Objective Vitals Vital Signs Date Time Temp Pulse Resp B/P Pulse Ox O2 Delivery O2 Flow Rate FiO2 02/22/17 08:00 96.4 80 19 157/95 97 02/22/17 00:00 99.7 94 20 125/63 99 02/21/17 20:00 99.8 95 20 162/88 97 02/21/17 16:00 98.5 97 17 138/80 96 02/21/17 12:00 97.4 96 18 141/95 95 I/O 02/21/17 02/21/17 02/21/17 02/22/17 02/22/17 02/22/17 07:00 15:00 23:00 07:00 15:00 23:00 Intake Total 1095 ml 960 ml 1400 ml 790 ml Output Total 1175 ml 1900 ml 1300 ml 950 ml Balance -80 ml -940 ml 100 ml -160 ml Intake Oral 240 ml 960 ml 900 ml 240 ml IV Total 855 ml 500 ml 550 ml Output Urine Total 1175 ml 1900 ml 1300 ml 950 ml # Bowel Movements 1 1 Result Diagram: 02/22/17 0400 02/22/17 0400 Imaging Last Impressions Scrotum Ultrasound 02/19/17 0000 Signed Impressions: Service Date/Time: Sunday, February 19, 2017 18:18 - CONCLUSION: 1. Severe scrotal edema and enlargement with diffuse increased vascularity. There is no distinct focal abscess. 2. The testicles are intrinsically normal. Abhinav Akers MD Objective Remarks GENERAL: This is a well-nourished, well-developed patient, in no apparent distress. CARDIOVASCULAR: Regular rate and regular rhythm without murmurs, gallops, or rubs. RESPIRATORY: Clear to auscultation. Breath sounds equal bilaterally. No wheezes , rales, or rhonchi. GASTROINTESTINAL: Abdomen soft, non-tender, nondistended. Normal, active bowel sounds Genitalia; scrotum swelling improving slowly. MUSCULOSKELETAL: Extremities without clubbing, cyanosis, or edema. NEURO: Alert & Oriented x4 to person, place, time, situation. Moves all ext x4 Procedures none Medications and IVs Current Medications Sodium Chloride (NS Flush) 2 ml UNSCH PRN IV FLUSH FLUSH AFTER USING IV ACCESS Last administered on 02/19/17 23:59; Start 02/17/17 at 21:30 Sodium Chloride (NS Flush) 2 ml BID IV FLUSH Last administered on 02/22/17 08: 49; Start 02/18/17 at 09:00 Ondansetron HCl (Zofran Inj) 4 mg Q6H PRN IVP NAUSEA OR VOMITING; Start at 21:30 Naloxone HCl (Narcan Inj) 0.4 mg UNSCH PRN IV SEE LABEL COMMENTS; Start at 21:30 Magnesium Hydroxide (Milk Of Magnesia Liq) 30 ml Q12H PRN PO MILD - MODERATE CONSTIPATION; Start 02/17/17 at 21:30 Sennosides (Senokot) 17.2 mg Q12H PRN PO MODERATE - SEVERE CONSTIPATION; Start 02/17/17 at 21:30 Bisacodyl (Dulcolax Supp) 10 mg DAILY PRN RECTAL SEVERE CONSITIPATION; Start at 21:30 Lactulose 30 ml 30 ml DAILY PRN PO SEVERE CONSITIPATION; Start 02/17/17 at 21:30 Pharmacy Profile Note 0 ml @ 0 mls/hr UNSCH OTHER ; Start 02/17/17 at 21:30 Piperacillin Sod/ Tazobactam Sod 100 ml @ 200 mls/hr Q8H IV Last administered on 02/19/17 10:03; Start 02/18/17 at 02:00; Stop 02/19/17 at 16:08; Status DC Vancomycin HCl/ Sodium Chloride (Vancomycin Inj/ NS 500 ml Inj) 516 ml @ 250 mls/hr DAILY@04 IV Last administered on 02/18/17 03:37; Start 02/18/17 at 04:00 ; Stop 02/18/17 at 08:00; Status DC Amlodipine Besylate (Norvasc) 5 mg DAILY PO Last administered on 02/22/17 08: 46; Start 02/18/17 at 09:00 Lisinopril (Prinivil) 10 mg DAILY PO Last administered on 02/22/17 08:46; Start 02/18/17 at 09:00 Acetaminophen/ Hydrocodone Bitart ([place] 5-325 Mg) 1 tab Q4H PRN PO PAIN SCALE 1 TO 6 Last administered on 02/18/17 02:40; Start 02/18/17 at 02:30 Acetaminophen/ Hydrocodone Bitart 1 tab 1 tab Q4H PRN PO PAIN SCALE 7 TO 10 Last administered on 02/22/17 08:50; Start 02/18/17 at 02:30 Vancomycin HCl/ Sodium Chloride (Vancomycin Inj/ NS 500 ml Inj) 520 ml @ 260 mls/hr Q12H IV Last administered on 02/20/17 03:49; Start 02/18/17 at 16:00; Stop 02/20/17 at 11:33; Status DC Miscellaneous Information SPECIFIC LAB TO BE JARETT... ONCE ONCE .XX Last administered on 02/20/17 03:45; Start 02/20/17 at 03:45; Stop 02/20/17 at 03:46 ; Status DC Acetaminophen (Tylenol) 650 mg ONCE ONCE PO Last administered on 02/18/17 22: 08; Start 02/18/17 at 21:30; Stop 02/18/17 at 21:31; Status DC Hydromorphone HCl (Dilaudid Pf Inj) 0.2 mg Q4H PRN IV PUSH breakthrough pain Last administered on 02/19/17 07:39; Start 02/18/17 at 21:30; Stop 02/19/17 at 09: 21; Status DC Hydromorphone HCl (Dilaudid Pf Inj) 0.5 mg Q4H PRN IV PUSH breakthrough pain Last administered on 02/21/17 23:50; Start 02/19/17 at 09:30 Diphenhydramine HCl 25 mg 25 mg Q6H PRN PO ITCHING Last administered on 16:25; Start 02/19/17 at 15:45 Clindamycin Phosphate/Sodium Chloride (Cleocin Inj/NS Inj) 106 ml @ 212 mls/hr Q8H IV Last administered on 02/22/17 08:46; Start 02/19/17 at 17:00 Levofloxacin (Levaquin) 750 mg DAILY PO Last administered on 02/21/17 08:28; Start 02/19/17 at 17:00; Stop 02/21/17 at 15:14; Status DC Acetaminophen 650 mg 650 mg Q4H PRN PO fever Last administered on 02/20/17 21: 35; Start 02/20/17 at 00:00 Vancomycin HCl/ Sodium Chloride (Vancomycin Inj/ NS 500 ml Inj) 520 ml @ 257.5 mls/ hr Q8H IV Last administered on 02/22/17 04:07; Start 02/20/17 at 13:00 Miscellaneous Information SPECIFIC LAB TO BE JARETT... ONCE ONCE .XX Last administered on 02/21/17 04:02; Start 02/21/17 at 04:45; Stop 02/21/17 at 04:46 ; Status DC Miscellaneous Information SPECIFIC LAB TO BE DRAWN:VANCOMYCIN TROUGH DATE TO... ONCE ONCE .XX ; Start 02/23/17 at 04:45; Stop 02/23/17 at 04:46 A/P Assessment and Plan 1.sepsis due to Cellulitis of the scrotum, perineum: scrotal swelling is improving slowly. CT shows inflammatory changes without evidence of subcutaneous emphysema or defined abscess. ] scrotal sonogram with Severe scrotal edema and enlargement with diffuse increased vascularity. There is no distinct focal abscess. The testicles are intrinsically normal. Continue antibiotics. fluid culture with MRSA. ID and urology following. 2. Hypertension: Continue home medications. 3. DVT prophylaxis: SCDs, MAGALIS wall. Discharge Planning possible dc home within the next one-two days if continues to improve and cleared by ID. Ish Underwood MD Feb 22, 2017 09:41
[2017-02-22 12:00] VITALS: BP 142/101; PULSE 86; RESP 20; TEMP 98.7; O2SAT 98
[2017-02-22] MEDS: HYDROmorphone HCL PF 1 MG/ML VIAL IV PUSH PRN (14:26)
[2017-02-22 16:00] VITALS: BP 137/86; PULSE 86; RESP 19; TEMP 98.3; O2SAT 98
[2017-02-22] MEDS: FLUCONAZOLE 100 MG TAB PO SCH (16:04)
--- NOTE | 2017-02-22 19:49 | HHI.PR ---
Subjective Patient symptoms today Scrotal swelling improved. No abscess noted. Some drainage from inferior aspect of scrotum, resolved. No fevers. Objective Vital Signs Vital Signs Date Time Temp Pulse Resp B/P Pulse Ox O2 Delivery O2 Flow Rate FiO2 02/22/17 16:00 98.3 86 19 137/86 98 02/22/17 12:00 98.7 86 20 142/101 98 02/22/17 08:00 96.4 80 19 157/95 97 02/22/17 00:00 99.7 94 20 125/63 99 02/21/17 20:00 99.8 95 20 162/88 97 Intake & Output 02/22/17 02/22/17 07:00 19:00 Intake Total 2190 ml 500 ml Output Total 2250 ml 2150 ml Balance -60 ml -1650 ml Intake Oral 1140 ml 500 ml IV Total 1050 ml Output Urine Total 2250 ml 2150 ml # Bowel Movements 1 1 Result Diagram: 02/22/17 0400 02/22/17 0400 Objective Remarks Scrotum significantly improved from prior exam with soft pliable scrotal tissue. No identified scrotal abscess. Medications and IVs Current Medications Medications (Trade) Dose Ordered Sig/Jerry Route Start Time Stop Time Status Last Admin (NS Flush) 2 ml UNSCH PRN IV FLUSH 02/17/17 21:30 02/19/17 23:59 (NS Flush) 2 ml BID IV FLUSH 02/18/17 09:00 02/22/17 08:49 (Zofran Inj) 4 mg Q6H PRN IVP 02/17/17 21:30 (Narcan Inj) 0.4 mg UNSCH PRN IV 02/17/17 21:30 (Milk Of Magnesia Liq) 30 ml Q12H PRN PO 02/17/17 21:30 (Senokot) 17.2 mg Q12H PRN PO 02/17/17 21:30 (Dulcolax Supp) 10 mg DAILY PRN RECTAL 02/17/17 21:30 Lactulose 30 ml 30 ml DAILY PRN PO 02/17/17 21:30 (Vancomycin Consult Pharmacy) 0 ml @ 0 mls/hr UNSCH OTHER 02/17/17 21:30 (Norvasc) 5 mg DAILY PO 02/18/17 09:00 02/22/17 08:46 (Prinivil) 10 mg DAILY PO 02/18/17 09:00 02/22/17 08:46 ([place] 5-325 Mg) 1 tab Q4H PRN PO 02/18/17 02:30 02/18/17 02:40 ([place] 10-325 Mg) 1 tab Q4H PRN PO 02/18/17 02:30 02/22/17 16:04 (Dilaudid Pf Inj) 0.5 mg Q4H PRN IV PUSH 02/19/17 09:30 02/22/17 14:26 Diphenhydramine HCl 25 mg 25 mg Q6H PRN PO 02/19/17 15:45 02/19/17 16:25 (Cleocin Inj/NS Inj) 106 ml @ 212 mls/hr Q8H IV 02/19/17 17:00 02/22/17 15:54 Acetaminophen 650 mg 650 mg Q4H PRN PO 02/20/17 00:00 02/20/17 21:35 (Vancomycin Inj/ NS 500 ml Inj) 520 ml @ 257.5 mls/ hr Q8H IV 02/20/17 13:00 02/22/17 13:22 Miscellaneous Information SPECIFIC LAB TO BE DRAWN:VANCOMYCIN TROUGH DATE TO... ONCE ONCE .XX 02/23/17 04:45 02/23/17 04:46 (Diflucan) 100 mg DAILY PO 02/22/17 16:00 02/22/17 16:04 Assessment and Plan Problem List: (1) Cellulitis of groin ICD Code: L03.314 Status: Acute (2) Cellulitis of perineum ICD Code: L03.315 Status: Acute (3) Cellulitis of scrotum ICD Code: N49.2 Status: Acute Assessment and Plan Scrotal cellulitis, no abscess -Exam improved -Continue antibiotics -Scrotal U/S reviewed with no evidence of drainable abscess -No further urological intervention indicated -Please call with questions Eduardo Bonilla MD Feb 22, 2017 19:49
[2017-02-22 20:00] VITALS: BP 156/72; PULSE 89; RESP 18; TEMP 97.7; O2SAT 96
[2017-02-23] VITALS: BP 141/82; PULSE 88; RESP 18; TEMP 99.3; O2SAT 96
[2017-02-23] MEDS: ACETAMINOPHEN/HYDROcodone 325 MG/10 MG TAB PO PRN ×2 (00:33→18:32)
[2017-02-23] MEDS: CLINDAMYCIN INJ 900 MG in SODIUM CHLORIDE 0.9% INJ 100 ML IV SCH ×3 (00:33→18:27)
[2017-02-23] MEDS ORDERED: PHARMACY ORDERED LAB ONE (04:45)
[2017-02-23] MEDS: HYDROmorphone HCL PF 1 MG/ML VIAL IV PUSH PRN ×2 (04:55→20:39)
[2017-02-23 05:07] LABS: AUTOMATED NEUTROPHIL # 9.5 TH/MM3 (1.8-7.7); BASOPHIL % 0.3 % (0.0-2.0); EOSINOPHIL # 0.8 TH/MM3 (0-0.4); EOSINOPHIL % 5.9 % (0.0-4.0); HEMATOCRIT 43.3 % (39.0-51.0); LYMPH % 13.2 % (9.0-44.0); LYMPHOCYTE # 1.7 TH/MM3 (1.0-4.8); MEAN CELL VOLUME 81.7 FL (80.0-100.0); MEAN CORPUSCULAR HEMOGLOBIN 27.6 PG (27.0-34.0); MEAN CORPUSCULAR HGB CONC 33.8 % (32.0-36.0); MONO % 7.3 % (0.0-8.0); NEUT % 73.3 % (16.0-70.0); PLATELET COUNT 324 TH/MM3 (150-450); RED CELL DISTRIBUTION WIDTH 14.2 % (11.6-17.2)
[2017-02-23 05:12] LABS: HEMO FLAGS AUTO DIFF
[2017-02-23] MEDS: VANCOMYCIN INJ 2,000 MG in SODIUM CHLORID 0.9% 500 ML INJ 500 ML IV SCH (05:42)
[2017-02-23 07:19] LABS: BANDS 18 % (0-6); EOSINOPHILS 7 % (0-4); METAMYELOCYTES 1 % (0-1); MYELOCYTES 4 % (0-0); NEUTROPHIL # MANUAL DIFF 8.8 TH/MM3 (1.8-7.7); POLYS (SEG NEUTROPHILS) 45 % (16-70); WBC DIFF SAMPLE 100
[2017-02-23 07:20] LABS: PLATELET ESTIMATE SMEAR NORMAL (NORMAL); PLATELET MORPHOLOGY NORMAL (NORMAL)
[2017-02-23 07:22] LABS: SCAN/DIFF FINAL DIFF MANUAL
[2017-02-23 08:00] VITALS: BP 151/99; PULSE 95; RESP 18; TEMP 98.4; O2SAT 96
[2017-02-23] MEDS: LISINOPRIL 10 MG TAB PO SCH (08:56)
[2017-02-23] MEDS: FLUCONAZOLE 100 MG TAB PO SCH (08:56)
[2017-02-23] MEDS: amLODIPine BESYLATE 5 MG TAB PO SCH (08:56)
[2017-02-23] MEDS: SODIUM CHLORIDE 0.9% FLUSH 10 ML FLUSH IV FLUSH SCH ×2 (09:02→21:00)
[2017-02-23 12:00] VITALS: BP 172/90; PULSE 72; RESP 18; TEMP 97; O2SAT 97
--- NOTE | 2017-02-23 12:02 | HHI.PR ---
Subjective Remarks feeling much better today. pain is better. no fever. Objective Vitals Vital Signs Date Time Temp Pulse Resp B/P Pulse Ox O2 Delivery O2 Flow Rate FiO2 02/23/17 08:00 98.4 95 18 151/99 96 02/23/17 05:25 18 02/23/17 01:33 18 02/23/17 00:00 99.3 88 18 141/82 96 02/22/17 20:00 97.7 89 18 156/72 96 02/22/17 16:00 98.3 86 19 137/86 98 I/O 02/22/17 02/22/17 02/22/17 02/23/17 02/23/17 02/23/17 07:00 15:00 23:00 07:00 15:00 23:00 Intake Total 790 ml 500 ml 480 ml 320 ml Output Total 950 ml 2150 ml 725 ml 1100 ml Balance -160 ml -1650 ml -245 ml -780 ml Intake Oral 240 ml 500 ml 480 ml 320 ml IV Total 550 ml Output Urine Total 950 ml 2150 ml 725 ml 1100 ml # Bowel Movements 1 0 0 Result Diagram: 02/23/17 0445 02/22/17 0400 Imaging Last Impressions Scrotum Ultrasound 02/19/17 0000 Signed Impressions: Service Date/Time: Sunday, February 19, 2017 18:18 - CONCLUSION: 1. Severe scrotal edema and enlargement with diffuse increased vascularity. There is no distinct focal abscess. 2. The testicles are intrinsically normal. Abhinav Akers MD Objective Remarks GENERAL: This is a well-nourished, well-developed patient, in no apparent distress. CARDIOVASCULAR: Regular rate and regular rhythm without murmurs, gallops, or rubs. RESPIRATORY: Clear to auscultation. Breath sounds equal bilaterally. No wheezes , rales, or rhonchi. GASTROINTESTINAL: Abdomen soft, non-tender, nondistended. Normal, active bowel sounds Genitalia; scrotum swelling has much improved. MUSCULOSKELETAL: Extremities without clubbing, cyanosis, or edema. NEURO: Alert & Oriented x4 to person, place, time, situation. Moves all ext x4 Procedures none Medications and IVs Current Medications Sodium Chloride (NS Flush) 2 ml UNSCH PRN IV FLUSH FLUSH AFTER USING IV ACCESS Last administered on 02/19/17 23:59; Start 02/17/17 at 21:30 Sodium Chloride (NS Flush) 2 ml BID IV FLUSH Last administered on 02/23/17 09: 02; Start 02/18/17 at 09:00 Ondansetron HCl (Zofran Inj) 4 mg Q6H PRN IVP NAUSEA OR VOMITING; Start at 21:30 Naloxone HCl (Narcan Inj) 0.4 mg UNSCH PRN IV SEE LABEL COMMENTS; Start at 21:30 Magnesium Hydroxide (Milk Of Magnesia Liq) 30 ml Q12H PRN PO MILD - MODERATE CONSTIPATION; Start 02/17/17 at 21:30 Sennosides (Senokot) 17.2 mg Q12H PRN PO MODERATE - SEVERE CONSTIPATION; Start 02/17/17 at 21:30 Bisacodyl (Dulcolax Supp) 10 mg DAILY PRN RECTAL SEVERE CONSITIPATION; Start at 21:30 Lactulose 30 ml 30 ml DAILY PRN PO SEVERE CONSITIPATION; Start 02/17/17 at 21:30 Pharmacy Profile Note 0 ml @ 0 mls/hr UNSCH OTHER ; Start 02/17/17 at 21:30 Piperacillin Sod/ Tazobactam Sod 100 ml @ 200 mls/hr Q8H IV Last administered on 02/19/17 10:03; Start 02/18/17 at 02:00; Stop 02/19/17 at 16:08; Status DC Vancomycin HCl/ Sodium Chloride (Vancomycin Inj/ NS 500 ml Inj) 516 ml @ 250 mls/hr DAILY@04 IV Last administered on 02/18/17 03:37; Start 02/18/17 at 04:00 ; Stop 02/18/17 at 08:00; Status DC Amlodipine Besylate (Norvasc) 5 mg DAILY PO Last administered on 02/23/17 08: 56; Start 02/18/17 at 09:00 Lisinopril (Prinivil) 10 mg DAILY PO Last administered on 02/23/17 08:56; Start 02/18/17 at 09:00 Acetaminophen/ Hydrocodone Bitart ([place] 5-325 Mg) 1 tab Q4H PRN PO PAIN SCALE 1 TO 6 Last administered on 02/18/17 02:40; Start 02/18/17 at 02:30 Acetaminophen/ Hydrocodone Bitart 1 tab 1 tab Q4H PRN PO PAIN SCALE 7 TO 10 Last administered on 02/23/17 00:33; Start 02/18/17 at 02:30 Vancomycin HCl/ Sodium Chloride (Vancomycin Inj/ NS 500 ml Inj) 520 ml @ 260 mls/hr Q12H IV Last administered on 02/20/17 03:49; Start 02/18/17 at 16:00; Stop 02/20/17 at 11:33; Status DC Miscellaneous Information SPECIFIC LAB TO BE JARETT... ONCE ONCE .XX Last administered on 02/20/17 03:45; Start 02/20/17 at 03:45; Stop 02/20/17 at 03:46 ; Status DC Acetaminophen (Tylenol) 650 mg ONCE ONCE PO Last administered on 02/18/17 22: 08; Start 02/18/17 at 21:30; Stop 02/18/17 at 21:31; Status DC Hydromorphone HCl (Dilaudid Pf Inj) 0.2 mg Q4H PRN IV PUSH breakthrough pain Last administered on 02/19/17 07:39; Start 02/18/17 at 21:30; Stop 02/19/17 at 09: 21; Status DC Hydromorphone HCl (Dilaudid Pf Inj) 0.5 mg Q4H PRN IV PUSH breakthrough pain Last administered on 02/23/17 04:55; Start 02/19/17 at 09:30 Diphenhydramine HCl 25 mg 25 mg Q6H PRN PO ITCHING Last administered on 16:25; Start 02/19/17 at 15:45 Clindamycin Phosphate/Sodium Chloride (Cleocin Inj/NS Inj) 106 ml @ 212 mls/hr Q8H IV Last administered on 02/23/17 09:01; Start 02/19/17 at 17:00 Levofloxacin (Levaquin) 750 mg DAILY PO Last administered on 02/21/17 08:28; Start 02/19/17 at 17:00; Stop 02/21/17 at 15:14; Status DC Acetaminophen 650 mg 650 mg Q4H PRN PO fever Last administered on 02/20/17 21: 35; Start 02/20/17 at 00:00 Vancomycin HCl/ Sodium Chloride (Vancomycin Inj/ NS 500 ml Inj) 520 ml @ 257.5 mls/ hr Q8H IV Last administered on 02/23/17 05:42; Start 02/20/17 at 13:00 Miscellaneous Information SPECIFIC LAB TO BE JARETT... ONCE ONCE .XX Last administered on 02/21/17 04:02; Start 02/21/17 at 04:45; Stop 02/21/17 at 04:46 ; Status DC Miscellaneous Information SPECIFIC LAB TO BE DRAWN:VANCOMYCIN TROUGH DATE TO... ONCE ONCE .XX ; Start 02/23/17 at 04:45; Stop 02/23/17 at 04:46; Status DC Fluconazole (Diflucan) 100 mg DAILY PO Last administered on 02/23/17 08:56; Start 02/22/17 at 16:00 A/P Assessment and Plan 1.sepsis due to Cellulitis of the scrotum, perineum: scrotal swelling has improved. CT shows inflammatory changes without evidence of subcutaneous emphysema or defined abscess. ] scrotal sonogram with Severe scrotal edema and enlargement with diffuse increased vascularity. There is no distinct focal abscess. The testicles are intrinsically normal. Continue antibiotics. fluid culture with MRSA and jessy. ID and urology following. 2. Hypertension: Continue home medications. 3. DVT prophylaxis: MAGALIS Booth. Discharge Planning dc home soon when cleared by ID. Ish Underwood MD Feb 23, 2017 12:02
--- NOTE | 2017-02-23 12:06 | HHI.IDPN ---
Note Infectious Disease Note Patient feels much better. Notes the pain is improved. Afebrile. Wound culture has MRSA. PAST MEDICAL HISTORY 1. Hypertension. 2. Asthma. MEDICATIONS 1. Vancomycin. 2. Clindamycin. 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 Positive tobacco. The patient drinks alcohol one-half gallon of whisky a week. No illicit drugs. OBJECTIVE: Vital Signs Date Time Temp Pulse Resp B/P Pulse Ox O2 Delivery O2 Flow Rate FiO2 02/23/17 08:00 98.4 95 18 151/99 96 02/23/17 05:25 18 02/23/17 01:33 18 02/23/17 00:00 99.3 88 18 141/82 96 02/22/17 20:00 97.7 89 18 156/72 96 02/22/17 16:00 98.3 86 19 137/86 98 02/22/17 12:00 98.7 86 20 142/101 98 02/22/17 02/22/17 02/23/17 15:00 23:00 07:00 Intake Total 500 ml 480 ml 320 ml Output Total 2150 ml 725 ml 1100 ml Balance -1650 ml -245 ml -780 ml Intake Oral 500 ml 480 ml 320 ml Output Urine Total 2150 ml 725 ml 1100 ml # Bowel Movements 1 0 0 Laboratory Tests Test 02/22/17 02/23/17 04:00 04:45 White Blood Count 15.6 TH/MM3 13.0 TH/MM3 Red Blood Count 5.20 MIL/MM3 5.30 MIL/MM3 Hemoglobin 14.0 GM/DL 14.6 GM/DL Hematocrit 43.4 % 43.3 % Mean Corpuscular Volume 83.5 FL 81.7 FL Mean Corpuscular Hemoglobin 27.0 PG 27.6 PG Mean Corpuscular Hemoglobin 32.4 % 33.8 % Concent Red Cell Distribution Width 14.1 % 14.2 % Platelet Count 312 TH/MM3 324 TH/MM3 Mean Platelet Volume 8.1 FL 7.6 FL Neutrophils (%) (Auto) 69.4 % 73.3 % Lymphocytes (%) (Auto) 16.2 % 13.2 % Monocytes (%) (Auto) 8.5 % 7.3 % Eosinophils (%) (Auto) 5.3 % 5.9 % Basophils (%) (Auto) 0.6 % 0.3 % Neutrophils # (Auto) 10.8 TH/MM3 9.5 TH/MM3 Lymphocytes # (Auto) 2.5 TH/MM3 1.7 TH/MM3 Monocytes # (Auto) 1.3 TH/MM3 0.9 TH/MM3 Eosinophils # (Auto) 0.8 TH/MM3 0.8 TH/MM3 Basophils # (Auto) 0.1 TH/MM3 0.0 TH/MM3 CBC Comment AUTO DIFF AUTO DIFF Differential Total Cells 100 100 Counted Neutrophils % (Manual) 50 % 45 % Band Neutrophils % 12 % 18 % Lymphocytes % 26 % 17 % Monocytes % 6 % 8 % Eosinophils % 3 % 7 % Neutrophils # (Manual) 10.1 TH/MM3 8.8 TH/MM3 Metamyelocytes 2 % 1 % Myelocytes 1 % 4 % Differential Comment FINAL DIFF FINAL DIFF MANUAL MANUAL Atypical Lymphocytes % Toxic Vacuolation PRESENT Platelet Estimate NORMAL NORMAL Platelet Morphology Comment NORMAL NORMAL Helmet Cells 1+ Keratocytes 1+ Laboratory Tests Test 02/22/17 04:00 Creatinine 0.72 MG/DL Estimat Glomerular Filtration 127 ML/MIN Rate Microbiology Date/Time Procedure Status Source Growth 02/20/17 15:30 Gram Stain - Final Complete Wound Scrotum 02/20/17 15:30 Wound Culture - Final Complete S. Aureus Mrsa Betsy Albicans IMAGING: Scrotum Ultrasound 02/19/17 0000 Signed Impressions: Service Date/Time: Sunday, February 19, 2017 18:18 - CONCLUSION: 1. Severe scrotal edema and enlargement with diffuse increased vascularity. There is no distinct focal abscess. 2. The testicles are intrinsically normal. Abhinav Akers MD PHYSICAL EXAMINATION GENERAL: No acute distress. Awake, alert, oriented. HEENT: No icterus. Oropharynx no visible lesions. NECK: Supple. No adenopathy. LUNGS: Clear breath sounds. HEART: Regular rate and rhythm without any murmurs, rubs, or gallops. GENITOURINARY: The mons pubis has induration on the R. side. There is a few punctate No longer erythematous, excoriated areas at the right thigh near the scrotum. The scrotum swelling has decreased by ~ 50%, less tender and erythematous. Induration at the base of the scrotum still present but decreased. Less tender. EXTREMITIES: No clubbing, cyanosis or edema. SKIN: No rash. NEUROLOGICAL: Alert and oriented. Nonfocal. PSYCHIATRIC: Calm and cooperative. IMPRESSION 1. Severe scrotal cellulitis. MRSA. improving. 2. Persistent leukocytosis. Improving. RECOMMENDATIONS 1. Stop vancomycin. 2. Continue Clindamycin. 3. Add PO Diflucan. 4. IV antibiotics through today and discharge tomorrow on PO Clindamycin 300mg tid and Diflucan 100 mg PO daily if stable. 5. Follow up with Infectious disease in 1 week. D/W Neville Vigil MD Feb 23, 2017 12:06
[2017-02-23 16:00] VITALS: BP 139/84; PULSE 88; RESP 18; TEMP 97.2; O2SAT 97
[2017-02-23] MEDS ORDERED: DIFL100T PO (16:16)
[2017-02-23] MEDS ORDERED: CLIN1CAP6 PO (16:16)
--- NOTE | 2017-02-23 16:16 | HHI.DCPOC ---
Discharge Care Plan Diagnosis: (1) Cellulitis of scrotum Your Health Problems Are: Inflammation Swelling Goals to Promote Your Health * To prevent worsening of your condition and complications * To maintain your health at the optimal level Directions to Meet Your Goals Take your medications as prescribed Follow your dietary instruction Follow activity as directed Keep your appointments as scheduled Take your immunizations and boosters as scheduled If your symptoms worsen call your PCP, if no PCP go to Urgent Care Center or Emergency Room Smoking is Dangerous to Your Health. Avoid second hand smoke Call the 24-hour hour crisis hotline for domestic abuse at Ish Underwood MD Feb 23, 2017 16:16
--- NOTE | 2017-02-23 16:17 | HHI.DS ---
Discharge Summary Admission Date Feb 18, 2017 at 01:13 Discharge Date: Feb 24, 2017 Admitting Diagnosis Scrotal/perineal cellulitis (1) Cellulitis of scrotum ICD Code: N49.2 Diagnosis: Principal (2) Cellulitis of perineum ICD Code: L03.315 Diagnosis: Principal (3) Hypertension ICD Code: I10 Diagnosis: Secondary Procedures none Brief History - From Admission The patient is a 31 year-old male who presented to the [place] ER with complaint of swelling and pain of the scrotum/groin. He states that his girlfriend convinced him to use [employer] chemical hair removal product on his genitalia on Monday. By Monday he noted "ingrown hairs", which progressed over the next 2 days to significant scrotal swelling and pain. He has no difficulty urinating. Has had subjective fever/chills. CBC/BMP: 02/23/17 0445 02/22/17 0400 Significant Findings Laboratory Tests Test 02/21/17 02/22/17 02/23/17 04:02 04:00 04:45 Vancomycin Level Trough 14.9 MCG/ML 14.9 MCG/ML (5.0-10.0) (5.0-10.0) White Blood Count 15.6 TH/MM3 13.0 TH/MM3 (4.0-11.0) (4.0-11.0) Monocytes (%) (Auto) 8.5 % (0.0-8.0) Eosinophils (%) (Auto) 5.3 % (0.0-4.0) 5.9 % (0.0-4.0) Neutrophils # (Auto) 10.8 TH/MM3 9.5 TH/MM3 (1.8-7.7) (1.8-7.7) Monocytes # (Auto) 1.3 TH/MM3 (0-0.9) Eosinophils # (Auto) 0.8 TH/MM3 0.8 TH/MM3 (0-0.4) (0-0.4) Band Neutrophils % 12 % (0-6) 18 % (0-6) Neutrophils # (Manual) 10.1 TH/MM3 8.8 TH/MM3 (1.8-7.7) (1.8-7.7) Metamyelocytes 2 % (0-1) Myelocytes 1 % (0-0) 4 % (0-0) Toxic Vacuolation PRESENT (NONE SEEN) Helmet Cells 1+ (NORMAL) Keratocytes 1+ (NORMAL) Neutrophils (%) (Auto) 73.3 % (16.0-70.0) Eosinophils % 7 % (0-4) Imaging Last Impressions Scrotum Ultrasound 02/19/17 0000 Signed Impressions: Service Date/Time: Sunday, February 19, 2017 18:18 - CONCLUSION: 1. Severe scrotal edema and enlargement with diffuse increased vascularity. There is no distinct focal abscess. 2. The testicles are intrinsically normal. Abhinav Akers MD PE at Discharge GENERAL: This is a well-nourished, well-developed patient, in no apparent distress. CARDIOVASCULAR: Regular rate and regular rhythm without murmurs, gallops, or rubs. RESPIRATORY: Clear to auscultation. Breath sounds equal bilaterally. No wheezes , rales, or rhonchi. GASTROINTESTINAL: Abdomen soft, non-tender, nondistended. Normal, active bowel sounds Genitalia; scrotum swelling has much improved. MUSCULOSKELETAL: Extremities without clubbing, cyanosis, or edema. NEURO: Alert & Oriented x4 to person, place, time, situation. Moves all ext x4 Hospital Course 1.sepsis due to Cellulitis of the scrotum, perineum: scrotal swelling has improved. CT shows inflammatory changes without evidence of subcutaneous emphysema or defined abscess. ] scrotal sonogram with Severe scrotal edema and enlargement with diffuse increased vascularity. There is no distinct focal abscess. The testicles are intrinsically normal. Continue antibiotics. fluid culture with MRSA and jessy. ID and urology following. 2. Hypertension: Continue home medications. 3. DVT prophylaxis: SCDs, MAGALIS florese. Pt Condition on Discharge: Good Discharge Disposition: Discharge Home Discharge Time: <= 30 minutes Discharge Instructions DIET: Follow Instructions for: Heart Healthy Diet Activities you can perform: Regular-No Restrictions Follow up Referrals: Infectious Disease - 1 Week with Avelino Arthur MD PCP Follow-up - 3-5 Days New Medications: Fluconazole (Diflucan) 100 Mg Tab 100 MG PO DAILY infection Days 7 Ref 0 TAB Changed Medications: Clindamycin (Clindamycin) 300 Mg Cap 300 MG PO TID Infection Days 7 Ref 0 CAP (Changed from: Q6H; Removed Quantity) Continued Medications: Amlodipine (Amlodipine) 5 Mg Tab 5 MG PO DAILY Blood Pressure Management #30 Ref 0 TAB Ibuprofen (Ibuprofen) 600 Mg Tab 600 MG PO Q8H PRN PAIN #20 Ref 0 TAB Lisinopril (Lisinopril) 10 Mg Tab 10 MG PO DAILY #30 Ref 0 TAB Ish Underwood MD Feb 23, 2017 16:17
[2017-02-23 20:00] VITALS: BP 135/86; PULSE 88; RESP 18; TEMP 98.8; O2SAT 95
[2017-02-24] VITALS: BP 131/66; PULSE 85; RESP 18; TEMP 98.9; O2SAT 95
[2017-02-24] MEDS: CLINDAMYCIN INJ 900 MG in SODIUM CHLORIDE 0.9% INJ 100 ML IV SCH ×2 (02:00→09:28)
[2017-02-24] MEDS: ACETAMINOPHEN/HYDROcodone 325 MG/10 MG TAB PO PRN ×2 (04:46→09:28)
[2017-02-24 08:00] VITALS: BP 142/83; PULSE 64; RESP 18; TEMP 97; O2SAT 97
[2017-02-24] MEDS: FLUCONAZOLE 100 MG TAB PO SCH (09:28)
[2017-02-24] MEDS: amLODIPine BESYLATE 5 MG TAB PO SCH (09:30)
[2017-02-24] MEDS: LISINOPRIL 10 MG TAB PO SCH (09:31)
--- NOTE | 2017-02-24 10:56 | HHI.PR ---
Subjective Remarks is comfortable. no fever. no new complaints. wants to go home today. Objective Vitals Vital Signs Date Time Temp Pulse Resp B/P Pulse Ox O2 Delivery O2 Flow Rate FiO2 02/24/17 08:00 97.0 64 18 142/83 97 02/24/17 05:46 18 02/24/17 00:00 98.9 85 18 131/66 95 02/23/17 22:47 20 02/23/17 20:00 98.8 88 18 135/86 95 02/23/17 16:00 97.2 88 18 139/84 97 02/23/17 12:00 97.0 72 18 172/90 97 I/O 02/23/17 02/23/17 02/23/17 02/24/17 02/24/17 02/24/17 07:00 15:00 23:00 07:00 15:00 23:00 Intake Total 320 ml 1146 ml 662 ml 320 ml Output Total 1100 ml 750 ml 950 ml 1000 ml Balance -780 ml 396 ml -288 ml -680 ml Intake Oral 320 ml 1146 ml 480 ml 320 ml IV Total 182 ml Output Urine Total 1100 ml 750 ml 950 ml 1000 ml # Voids 1 # Bowel Movements 0 1 0 0 Result Diagram: 02/23/17 0445 02/24/17 0438 Imaging Last Impressions Scrotum Ultrasound 02/19/17 0000 Signed Impressions: Service Date/Time: Sunday, February 19, 2017 18:18 - CONCLUSION: 1. Severe scrotal edema and enlargement with diffuse increased vascularity. There is no distinct focal abscess. 2. The testicles are intrinsically normal. Abhinav Akers MD Objective Remarks GENERAL: This is a well-nourished, well-developed patient, in no apparent distress. CARDIOVASCULAR: Regular rate and regular rhythm without murmurs, gallops, or rubs. RESPIRATORY: Clear to auscultation. Breath sounds equal bilaterally. No wheezes , rales, or rhonchi. GASTROINTESTINAL: Abdomen soft, non-tender, nondistended. Normal, active bowel sounds Genitalia; scrotum swelling has much improved. MUSCULOSKELETAL: Extremities without clubbing, cyanosis, or edema. NEURO: Alert & Oriented x4 to person, place, time, situation. Moves all ext x4 Procedures none Medications and IVs Current Medications Sodium Chloride (NS Flush) 2 ml UNSCH PRN IV FLUSH FLUSH AFTER USING IV ACCESS Last administered on 02/19/17 23:59; Start 02/17/17 at 21:30 Sodium Chloride (NS Flush) 2 ml BID IV FLUSH Last administered on 02/23/17 21: 00; Start 02/18/17 at 09:00 Ondansetron HCl (Zofran Inj) 4 mg Q6H PRN IVP NAUSEA OR VOMITING; Start at 21:30 Naloxone HCl (Narcan Inj) 0.4 mg UNSCH PRN IV SEE LABEL COMMENTS; Start at 21:30 Magnesium Hydroxide (Milk Of Magnesia Liq) 30 ml Q12H PRN PO MILD - MODERATE CONSTIPATION; Start 02/17/17 at 21:30 Sennosides (Senokot) 17.2 mg Q12H PRN PO MODERATE - SEVERE CONSTIPATION; Start 02/17/17 at 21:30 Bisacodyl (Dulcolax Supp) 10 mg DAILY PRN RECTAL SEVERE CONSITIPATION; Start at 21:30 Lactulose 30 ml 30 ml DAILY PRN PO SEVERE CONSITIPATION; Start 02/17/17 at 21:30 Pharmacy Profile Note 0 ml @ 0 mls/hr UNSCH OTHER ; Start 02/17/17 at 21:30; Stop 02/23/17 at 12:10; Status DC Piperacillin Sod/ Tazobactam Sod 100 ml @ 200 mls/hr Q8H IV Last administered on 02/19/17 10:03; Start 02/18/17 at 02:00; Stop 02/19/17 at 16:08; Status DC Vancomycin HCl/ Sodium Chloride (Vancomycin Inj/ NS 500 ml Inj) 516 ml @ 250 mls/hr DAILY@04 IV Last administered on 02/18/17 03:37; Start 02/18/17 at 04:00 ; Stop 02/18/17 at 08:00; Status DC Amlodipine Besylate (Norvasc) 5 mg DAILY PO Last administered on 02/24/17 09: 30; Start 02/18/17 at 09:00 Lisinopril (Prinivil) 10 mg DAILY PO Last administered on 02/24/17 09:31; Start 02/18/17 at 09:00 Acetaminophen/ Hydrocodone Bitart ([place] 5-325 Mg) 1 tab Q4H PRN PO PAIN SCALE 1 TO 6 Last administered on 02/18/17 02:40; Start 02/18/17 at 02:30 Acetaminophen/ Hydrocodone Bitart 1 tab 1 tab Q4H PRN PO PAIN SCALE 7 TO 10 Last administered on 02/24/17 09:28; Start 02/18/17 at 02:30 Vancomycin HCl/ Sodium Chloride (Vancomycin Inj/ NS 500 ml Inj) 520 ml @ 260 mls/hr Q12H IV Last administered on 02/20/17 03:49; Start 02/18/17 at 16:00; Stop 02/20/17 at 11:33; Status DC Miscellaneous Information SPECIFIC LAB TO BE JARETT... ONCE ONCE .XX Last administered on 02/20/17 03:45; Start 02/20/17 at 03:45; Stop 02/20/17 at 03:46 ; Status DC Acetaminophen (Tylenol) 650 mg ONCE ONCE PO Last administered on 02/18/17 22: 08; Start 02/18/17 at 21:30; Stop 02/18/17 at 21:31; Status DC Hydromorphone HCl (Dilaudid Pf Inj) 0.2 mg Q4H PRN IV PUSH breakthrough pain Last administered on 02/19/17 07:39; Start 02/18/17 at 21:30; Stop 02/19/17 at 09: 21; Status DC Hydromorphone HCl (Dilaudid Pf Inj) 0.5 mg Q4H PRN IV PUSH breakthrough pain Last administered on 02/23/17 20:39; Start 02/19/17 at 09:30 Diphenhydramine HCl 25 mg 25 mg Q6H PRN PO ITCHING Last administered on 16:25; Start 02/19/17 at 15:45 Clindamycin Phosphate/Sodium Chloride (Cleocin Inj/NS Inj) 106 ml @ 212 mls/hr Q8H IV Last administered on 02/24/17 09:28; Start 02/19/17 at 17:00 Levofloxacin (Levaquin) 750 mg DAILY PO Last administered on 02/21/17 08:28; Start 02/19/17 at 17:00; Stop 02/21/17 at 15:14; Status DC Acetaminophen 650 mg 650 mg Q4H PRN PO fever Last administered on 02/20/17 21: 35; Start 02/20/17 at 00:00 Vancomycin HCl/ Sodium Chloride (Vancomycin Inj/ NS 500 ml Inj) 520 ml @ 257.5 mls/ hr Q8H IV Last administered on 02/23/17 05:42; Start 02/20/17 at 13:00; Stop 02/23/17 at 12:10; Status DC Miscellaneous Information SPECIFIC LAB TO BE JARETT... ONCE ONCE .XX Last administered on 02/21/17 04:02; Start 02/21/17 at 04:45; Stop 02/21/17 at 04:46 ; Status DC Miscellaneous Information SPECIFIC LAB TO BE DRAWN:VANCOMYCIN TROUGH DATE TO... ONCE ONCE .XX ; Start 02/23/17 at 04:45; Stop 02/23/17 at 04:46; Status DC Fluconazole (Diflucan) 100 mg DAILY PO Last administered on 02/24/17 09:28; Start 02/22/17 at 16:00 A/P Assessment and Plan A/P 1.sepsis due to Cellulitis of the scrotum, perineum: scrotal swelling has much improved. CT shows inflammatory changes without evidence of subcutaneous emphysema or defined abscess. scrotal sonogram with Severe scrotal edema and enlargement with diffuse increased vascularity. There is no distinct focal abscess. The testicles are intrinsically normal. Continue antibiotics; will switch to po. fluid culture with MRSA and jessy. evaluated by ID and Urology. 2. Hypertension: Continue home medications. 3. DVT prophylaxis: SCDs, MAGALIS wall. Discharge Planning dc home today. see med list. f/u; pcp and ID. d/w the patient and RN. previously d/w . Ish Underwood MD Feb 24, 2017 10:56
== END 2017-02-24 13:19 | disposition home or self-care (01) | DRG 872 ==
LOC: NEDDLT 01:09 → N07A 01:13
PROVIDERS: ADMIT Internal Medicine; ATTEND Internal Medicine
DX: A41.9 Sepsis, unspecified organism (principal); L03.315 Cellulitis of perineum; I10 Essential (primary) hypertension; N49.2 Inflammatory disorders of scrotum; F17.210 Nicotine dependence, cigarettes, uncomplicated; J45.909 Unspecified asthma, uncomplicated; B95.62 Methicillin resistant Staphylococcus aureus infection as the cause of diseases classified elsewhere
CPT/HCPCS: 74177; 76870; 76937; 80048; 80053; 80202; 82565; 85007; 85025; 85027; 86403; 87040; 87070; 87147; 87186; 87205; 93975; 96365; 96367; 96375; J1100; J1170; J1885; J2543; J3370; J7040; J7050; Q9967